=== PATIENT | male | born 1930 | race Caucasian/White ===

== ENCOUNTER 2018-10-03 11:20 | Inpatient (IN) | payer MEDICARE ==
[2018-10-03 11:58] LABS: #Basophils 0.1 thou/uL (0.0-0.2); #Eosinphils 0.2 thou/uL (0.0-0.7); #Lymphocytes 3.3 thou/uL (1.20-3.40); #Monocytes 0.8 thou/uL (0.11-0.59); #Neutrophils 9.1 thou/uL (1.40-6.50); %Eosinophils 1.5 % (0.0-10.0); %Lymphocytes 24.1 % (21.0-51.0); %Monocytes 5.8 % (0.0-10.0); %Neutrophils 67.7 % (42.0-75.0); Hemoglobin 13.7 g/dL (14.0-18.0); Mean Corpuscular HGB CONC 33.2 g/dL (32.0-36.0); Mean Corpuscular Volume 93.4 fL (78.0-98.0); Mean Platelet Volume 7.3 fL (7.4-10.4); Platelet Count 193 thou/uL (130-400); Red Blood Cell (RBC) Count 4.42 mill/uL (4.70-6.10); White Blood Cell (WBC) Count 13.5 thou/uL (4.8-10.8)
[2018-10-03 12:04] LABS: Anion Gap 16 mmol/L (10-20); BUN (Urea Nitrogen) 12 mg/dL (8.4-25.7); Calc. Creatinine Clearance 0 mL/min (70-130); Calcium 8.1 mg/dL (7.8-10.44); Carbon Dioxide 17 mmol/L (23-31); Chloride 101 mmol/L (98-107); Estimated GFR-MDRD 61; Glucose 166 mg/dL (83-110); Potassium 4.8 mmol/L (3.5-5.1); Sodium 129 mmol/L (136-145)
[2018-10-03] MEDS ORDERED: Bisacodyl 5 MG TAB PO PRN (15:02)
[2018-10-03] MEDS ORDERED: Norepinephrine 8 MG/0.9% NS 250 ML IVPB PRN (15:02)
[2018-10-03] MEDS ORDERED: Hetastarch 6% 500 ML 500 ML IVPB PRN (15:02)
[2018-10-03] MEDS ORDERED: Acetaminophen 325 MG TAB PO PRN (15:02)
[2018-10-03] MEDS ORDERED: Morphine 4 MG/ML VIAL SLOW IVP PRN (15:02)
[2018-10-03] MEDS ORDERED: Fentanyl 100 MCG/2 ML VIAL SLOW IVP PRN ×2 (15:02)
[2018-10-03] MEDS ORDERED: Promethazine HCl 25 MG/ML VIAL IM PRN (15:02)
[2018-10-03] MEDS ORDERED: Bisacodyl 10 MG SUPP PR PRN (15:02)
[2018-10-03] MEDS ORDERED: HYDROcodone/Acetaminophen 5/325 mg Tablet PO PRN ×2 (15:02)
[2018-10-03] MEDS ORDERED: hydrALAZINE 20 MG/ML VIAL SLOW IVP PRN (15:02)
[2018-10-03] MEDS ORDERED: Nitroglycerin 50 MG/250 ML BOT 250 ML IVPB PRN (15:02)
[2018-10-03] MEDS ORDERED: Mag-Al 1200 mg/1200 mg/30 ML UDCUP PO PRN (15:02)
[2018-10-03] MEDS ORDERED: Propofol 1,000 MG/100 ML VIAL IV ONE (15:03)
[2018-10-03] MEDS: Sodium Chloride 0.9% 1,000 ML IV SCH ×2 (15:15→22:56)
--- NOTE | 2018-10-03 15:23 | RAD ---
PORTABLE CHEST: Date: 10/03/18 PROVIDED CLINICAL HISTORY: Post open heart. FINDINGS: Comparison made with study dated 05/27/05. Cardiac and mediastinal silhouette within normal limits. Enteric catheter is noted, the tip of which projects in the left upper quadrant. Left subclavian central line is noted with tip projecting in the expected location of cavoatrial junction. Endotracheal tube is noted, tip of which projects slightly inferior to the thoracic inlet. No focal consolidation evident. Evaluation for pleural fluid and pne umothorax is limited given the supine nature of the study. IMPRESSION: Lines and tubes as above. POS: [facility]
[2018-10-03 15:29] LABS: #Eosinphils 0.1 thou/uL (0.0-0.7); #Lymphocytes 1.7 thou/uL (1.20-3.40); #Monocytes 0.6 thou/uL (0.11-0.59); #Neutrophils 11.1 thou/uL (1.40-6.50); %Basophils 0.3 % (0.0-1.0); %Eosinophils 0.5 % (0.0-10.0); %Lymphocytes 12.6 % (21.0-51.0); %Monocytes 4.4 % (0.0-10.0); %Neutrophils 82.2 % (42.0-75.0); Hemoglobin 10.3 g/dL (14.0-18.0); Mean Corpuscular HGB CONC 33.4 g/dL (32.0-36.0); Mean Corpuscular Hemoglobin 30.4 pg (27.0-31.0); Mean Corpuscular Volume 90.9 fL (78.0-98.0); Mean Platelet Volume 7.1 fL (7.4-10.4); Platelet Count 146 thou/uL (130-400); RBC Distribution Width 12.8 % (11.5-14.5); Red Blood Cell (RBC) Count 3.38 mill/uL (4.70-6.10); White Blood Cell (WBC) Count 13.5 thou/uL (4.8-10.8)
[2018-10-03] MEDS ORDERED: PHENYLEPHRINE-NS 100 MCG/ML 10 ML SYRINGE ONE (15:30)
[2018-10-03] MEDS ORDERED: Nitroglycerin 50 MG/250 ML BOT ONE (15:30)
[2018-10-03] MEDS ORDERED: Sodium Bicarb 50 MEQ/50 ML VIAL ONE (15:30)
[2018-10-03] MEDS ORDERED: Calcium Chloride 1 GM/10 ML Abboject SYRINGE ONE (15:30)
[2018-10-03] MEDS ORDERED: Heparin 30,000 units/30 ml VIAL ONE (15:30)
[2018-10-03] MEDS ORDERED: Succinylcholine Chloride 20 MG/ML 10 ml SYRINGE FS ONE (15:30)
[2018-10-03] MEDS ORDERED: Protamine Sulfate 250 MG/25 ML VIAL ONE (15:30)
[2018-10-03 15:33] LABS: INR-International Normal Ratio 1.3; PTT 33.9 SEC (22.9-36.1); Prothrombin Time 16.3 SEC (12.0-14.7)
[2018-10-03 15:43] LABS: Anion Gap 18 mmol/L (10-20); BUN (Urea Nitrogen) 12 mg/dL (8.4-25.7); Calc. Creatinine Clearance 0 mL/min (70-130); Calcium 8.4 mg/dL (7.8-10.44); Carbon Dioxide 20 mmol/L (23-31); Chloride 106 mmol/L (98-107); Estimated GFR-MDRD 70; Glucose 183 mg/dL (83-110); Potassium 4.7 mmol/L (3.5-5.1); Sodium 139 mmol/L (136-145)
[2018-10-03] MEDS ORDERED: Fentanyl 250 MCG/5 ML VIAL ONE (16:08)
[2018-10-03] MEDS ORDERED: Insulin Regular 300 UNITS/3 ML VIAL SC PRN (16:10)
[2018-10-03] MEDS ORDERED: Dextrose 50% Abboject 50 ML SYRINGE SLOW IVP PRN (16:10)
[2018-10-03] MEDS ORDERED: Dextrose 5% in Water 1,000 ML IV PRN (16:10)
[2018-10-03] MEDS ORDERED: Phenylephrine HCL 10 MG/ML VIAL ONE (16:13)
[2018-10-03] MEDS ORDERED: Norepinephrine 8 MG/0.9% NS 250 ML ONE (16:13)
[2018-10-03] MEDS ORDERED: Sodium Chloride 0.9% 1,000 ML IV SCH (16:30)
[2018-10-03] MEDS: Famotidine/PF 20 mg/2ml Vial SLOW IVP SCH (20:24)
[2018-10-03] MEDS ORDERED: Morphine 2 MG/ML SYRINGE SLOW IVP PRN (20:37)
[2018-10-03] MEDS ORDERED: DISCONTINUE PREVIOUS NARCOTIC PAIN MEDICATIONS AND BENZODIAZEPINES FS SCH (20:37)
[2018-10-03] MEDS ORDERED: Fentanyl CADD 250 ML IVPB SCH (20:37)
[2018-10-03] MEDS ORDERED: Fentanyl BOLUS 250 ML IVPB PRN (20:37)
[2018-10-03] MEDS ORDERED: Propofol BOLUS 1,000 MG/100 ML VIAL IV PRN (20:37)
--- NOTE | 2018-10-03 20:37 | OP ---
DATE OF PROCEDURE: 10/03/2018 I received a call from the [place] [facility] with an 87-year-old gentleman there with a ruptured abdominal aortic aneurysm. He was sent here via helicopter. He received 2 units of packed red blood cells in flight. On arrival, he was awake and conversant. Manual cuff pressure obtained showed a systolic pressure in the 60s. We isma blood for type and cross and transported him emergently to the operating room for open repair of ruptured infrarenal abdominal aortic aneurysm. Job ID: [id number] [facility]
--- NOTE | 2018-10-03 21:02 | OP ---
DATE OF PROCEDURE: 10/03/2018 PREOPERATIVE DIAGNOSIS: Ruptured abdominal aortic aneurysm. POSTOPERATIVE DIAGNOSIS: Ruptured abdominal aortic aneurysm. PROCEDURES PERFORMED: 1. Left subclavian triple-lumen central line placement. 2. Open repair of abdominal aortic aneurysm that is ruptured with 18 mm Hemashield tube graft. ANESTHESIA: General endotracheal - Mercy Cardenas CRNA ESTIMATED BLOOD LOSS: Approximately 2000 mL. CELL SAVER RETURN: 1160. TOTAL PRODUCTS GIVEN: Five units packed red blood cells, 6 units FFP, 2 units of platelets, and 1 unit of cryo. DESCRIPTION OF PROCEDURE: After the patient was brought emergently to the operating room from the Emergency Department, central line was placed sterilely using modified Seldinger technique. The abdomen was then prepped and draped in usual sterile fashion from nipples to knees. Skin incision was made from xiphoid to pubis. Fascia was incised with electrocautery. The peritoneum was sharply entered and peritoneal incision extended. There was blood staining of the retroperitoneum and some free blood within the abdominal cavity. The duodenum was mobilized off the retroperitoneum. During mobilization, the retroperitoneum began to bleed vigorously. Blunt dissection was used to expose the infrarenal aorta and the aorta was cross-clamped. The remainder of the duodenal exposure was then performed. There was a large retroperitoneal hematoma surrounding the aneurysm. The aneurysm was over 10 cm in diameter. The distal aorta was exposed and clamped. The aneurysm was entered and the aneurysmal incision extended vertically in both cephalad and caudad. There were no bleeding lumbars. 5000 units IV Heparin was administered. The inferior mesenteric artery was occluded. Proximal anastomosis was created between 18 mm Hemashield tube graft and the aorta with running 3-0 Prolene suture. Multiple pledgeted 3-0 prolene sutures were placed for hemostasis. After adequate hemostasis of the proximal anastomosis been obtained, the graft was cut to appropriate length and the distal anastomosis was created with a running 3-0 Prolene suture. The pelvis was reperfused, followed by the legs. 50 mg of protamine was administered. The patient was given multiple units of blood and blood products as above during the procedure. After adequate hemostasis of the anastomosis had been obtained, the aneurysm sac was closed over the repair with running 2-0 Vicryl suture. Cedrick and Surgicel were used around the proximal aorta for hemostasis. After adequate hemostasis had been obtained, the abdomen was copiously irrigated. The aneurysm itself was re- retroperitonealized with running 2-0 Vicryl suture. Bowels were brought back in the anatomic position. The colon was pink. The bowels were covered with the omentum. The fascia was closed with a running looped #1 PDS suture. Wounds were then irrigated and skin closed with clips. The patient was transported to the intensive care unit in critical condition, intubated. Needle, sponge, and instrument counts were all reported as correct. Job ID: [id number] [facility]
[2018-10-03] MEDS: fentaNYL Citrate/PF 2,000 MCG in Sodium Chloride 0.9% 60 ML IV SCH (21:17)
[2018-10-03] MEDS: CEFAZOLIN 2 GM/50 ML BAG IVPB SCH (21:17)
[2018-10-03] MEDS: Propofol 1,000 MG/100 ML VIAL IV PRN (22:55)
--- NOTE | 2018-10-04 02:31 | CON ---
DATE OF CONSULTATION: 10/03/2018 HISTORY OF PRESENT ILLNESS: Mr. Schuster is a gentleman, flown over here from [place] for abdominal aortic aneurysm repair. He is 87 years of age. There was fair amount of blood loss during the procedure. He was transferred to the critical care unit and intubated. Reviewing all records, he has never been in the hospital here. Apparently, he was brought in after an episode of syncope. He was apparently caught by a bystander. PAST MEDICAL HISTORY: Remarkable for hypertension. SOCIAL HISTORY: He is not a daily drinker. Not a drug user. He is not a smoker. ALLERGIES: THERE IS REPORTED CODEINE ALLERGY. REVIEW OF SYSTEMS: Not obtainable as he is intubated. He is examined postoperatively. PHYSICAL EXAMINATION: VITAL SIGNS: Heart rate is in the 90s, respiratory rate is in the high 20s to low 30s. Oximetry is 100%. Blood pressure 149/72. He is afebrile. HEENT: Pupils react. Sclerae, anicteric. NECK: Supple. LUNGS: Clear. HEART: Regular rhythm. S1, S2 normal. ABDOMEN: Bandaged. EXTREMITIES: Warm. DIAGNOSTIC STUDIES: Chest radiographs remarkable for appropriate position of lines and tubes. No infiltrates are seen. IMPRESSION: Status post emergent repair of abdominal aortic aneurysm. His hemoglobin at 08:20 is 10; at 1511, it was 10.3. His renal function postoperatively; his creatinine is 1. Blood gas; 7.3, Co2 of 42, and pO2 of 113. We will be happy to follow with the other physicians caring for him. Critical care time, 30 minutes. Job ID: [id number] [facility]
[2018-10-04 04:52] LABS: Anion Gap 12 mmol/L (10-20); BUN (Urea Nitrogen) 16 mg/dL (8.4-25.7); Calc. Creatinine Clearance 49 mL/min (70-130); Calcium 7.5 mg/dL (7.8-10.44); Carbon Dioxide 22 mmol/L (23-31); Chloride 110 mmol/L (98-107); Estimated GFR-MDRD 56; Glucose 109 mg/dL (83-110); Potassium 3.8 mmol/L (3.5-5.1); Sodium 140 mmol/L (136-145)
[2018-10-04] MEDS: Sodium Chloride 0.9% 1,000 ML IV SCH ×4 (05:21→23:27)
[2018-10-04] MEDS: CEFAZOLIN 2 GM/50 ML BAG IVPB SCH ×2 (06:08→13:53)
[2018-10-04 06:58] LABS: #Lymphocytes 1.6 thou/uL (1.20-3.40); #Monocytes 0.4 thou/uL (0.11-0.59); #Neutrophils 6.6 thou/uL (1.40-6.50); %Basophils 0.1 % (0.0-1.0); %Eosinophils 0.1 % (0.0-10.0); %Lymphocytes 18.3 % (21.0-51.0); %Monocytes 4.5 % (0.0-10.0); %Neutrophils 77.1 % (42.0-75.0); Hemoglobin 7.9 g/dL (14.0-18.0); Mean Corpuscular HGB CONC 34.3 g/dL (32.0-36.0); Mean Corpuscular Hemoglobin 31.5 pg (27.0-31.0); Mean Corpuscular Volume 91.8 fL (78.0-98.0); Mean Platelet Volume 7.5 fL (7.4-10.4); Platelet Count 114 thou/uL (130-400); Platelet Morphology Comment Appears Decreased; RBC Distribution Width 12.9 % (11.5-14.5); White Blood Cell (WBC) Count 8.6 thou/uL (4.8-10.8)
[2018-10-04 07:07] LABS: Actual Bicarbonate (HCO3a) 21.7 mEq/L (22-28); Base Excess (BEa) -2.4 mEq/L (-2.0 to +3.0); CO2 Tension 34.5 mmHg (35.0-45.0); Calcium, Ionized 1.07 mmol/L (1.12-1.30); Carboxyhemoglobin (COHb) 0.7 gm% (0.0-3.0); Hemoglobin (Hb) 9.1 g/dL (14.0-18.0); O2 Tension (PaO2) 99.1 mmHg (> 60.0); Potassium - ABG Lab 3.78 mmol/L (3.70-5.30); pH, Arterial 7.42 (7.35-7.45)
[2018-10-04 07:10] LABS: Puncture Site RRA
[2018-10-04 07:11] LABS: ALV-art Gradient 142.975 (0-20)
[2018-10-04] MEDS: Famotidine/PF 20 mg/2ml Vial SLOW IVP SCH ×2 (08:27→21:03)
--- NOTE | 2018-10-04 09:06 | RAD ---
PORTABLE CHEST: Date: 10/04/18 PROVIDED CLINICAL HISTORY: Post open heart. FINDINGS: Comparison made with study dated 10/03/18. Bibasilar patchy opacities are more conspicuous than on prior and may reflect volume loss or developi ng infiltrate. Lines and tubes appear similar. No evidence for pneumothorax. IMPRESSION: Probable bibasilar subsegmental atelectatic change. Follow-up recommended. POS: [facility]
--- NOTE | 2018-10-04 12:13 | PRG ---
DATE OF SERVICE: 10/04/2018 SUBJECTIVE: Mr. Jersey Schuster is hemodynamically stable overnight. He has received blood this morning. OBJECTIVE: VITAL SIGNS: Temperature is 100.4, heart rate 75, respiratory rate 18, and blood pressure 101/40. LUNGS: Clear. HEART: Regular rhythm. ABDOMEN: Distended. EXTREMITIES: Warm. Intake and output positive 2667. LABORATORY DATA: A pH 7.42, CO2 of 34, pO2 of 99. Sodium 140, potassium 3.8, chloride 110, bicarb 22, BUN 16, creatinine 1.21. White count 8.6, hemoglobin 7.9, and platelets 114,000. IMPRESSION: 1. Status post emergent repair of an abdominal aortic aneurysm that was leaking and bleeding into his retroperitoneum. 2. Blood loss anemia. 3. Advanced age. 4. Probable some mild degree of chronic kidney disease given his advanced age and vascular disease. Reviewed today's chest radiograph. He has mild pulmonary edema. We will not diurese him at this point. PLAN: We will continue with supportive care. We will get an echocardiogram to quantitate left ventricular function while he is here, although, this will change our management at this point in time. This can certainly be done tomorrow. He does not have any family. He has 2 very close friends, who are at the bedside and I have updated them. Apparently, he has not had contact with any of his family in many years. Critical care time 30 minutes. Job ID: [id number]
[2018-10-04] MEDS: Acetaminophen 650 MG/20.3 ML UDCUP PO PRN (16:46)
[2018-10-04] MEDS: Propofol 1,000 MG/100 ML VIAL IV PRN (18:46)
[2018-10-05 04:34] LABS: #Basophils 0.1 thou/uL (0.0-0.2); #Eosinphils 0.1 thou/uL (0.0-0.7); #Lymphocytes 1.9 thou/uL (1.20-3.40); #Monocytes 0.6 thou/uL (0.11-0.59); #Neutrophils 11.2 thou/uL (1.40-6.50); %Basophils 0.5 % (0.0-1.0); %Eosinophils 0.6 % (0.0-10.0); %Lymphocytes 13.6 % (21.0-51.0); %Monocytes 4.6 % (0.0-10.0); %Neutrophils 80.6 % (42.0-75.0); Hemoglobin 10.3 g/dL (14.0-18.0); Mean Corpuscular HGB CONC 33.2 g/dL (32.0-36.0); Mean Corpuscular Hemoglobin 29.9 pg (27.0-31.0); Mean Corpuscular Volume 90.2 fL (78.0-98.0); Mean Platelet Volume 8.1 fL (7.4-10.4); Platelet Count 104 thou/uL (130-400); RBC Distribution Width 14.6 % (11.5-14.5); Red Blood Cell (RBC) Count 3.45 mill/uL (4.70-6.10); White Blood Cell (WBC) Count 13.8 thou/uL (4.8-10.8)
[2018-10-05 04:43] LABS: Anion Gap 13 mmol/L (10-20); BUN (Urea Nitrogen) 20 mg/dL (8.4-25.7); Calc. Creatinine Clearance 58 mL/min (70-130); Calcium 7.8 mg/dL (7.8-10.44); Carbon Dioxide 21 mmol/L (23-31); Chloride 110 mmol/L (98-107); Estimated GFR-MDRD 68; Glucose 104 mg/dL (83-110); Potassium 3.6 mmol/L (3.5-5.1); Sodium 140 mmol/L (136-145)
[2018-10-05 06:26] LABS: Actual Bicarbonate (HCO3a) 22.8 mEq/L (22-28); Base Excess (BEa) -1.5 mEq/L (-2.0 to +3.0); CO2 Tension 36.5 mmHg (35.0-45.0); Hemoglobin (Hb) 10.4 g/dL (14.0-18.0); O2 Tension (PaO2) 64.2 mmHg (> 60.0); Potassium - ABG Lab 3.53 mmol/L (3.70-5.30); pH, Arterial 7.41 (7.35-7.45)
[2018-10-05 06:28] LABS: ALV-art Gradient 175.375 (0-20); Puncture Site RRA
[2018-10-05] MEDS ORDERED: Potassium Chloride 20 MEQ in Sodium Chloride 0.9% 250 ML 250 ML IVPB SCH (07:30)
[2018-10-05] MEDS ORDERED: Furosemide 40 MG/4 ML VIAL SLOW IVP SCH (07:30)
--- NOTE | 2018-10-05 08:31 | RAD ---
CHEST ONE VIEW: Comparison: 10-04-18 History: Status post open heart surgery. FINDINGS: Redemonstration of the left sided central venous catheter, endotracheal tube, and nasogastric tube. T here is atherosclerosis of the aorta. Heart is enlarged. There are bibasilar pleural effusions with i ncreasing opacification due to atelectasis, pneumonia, or aspiration. There is no pneumothorax. IMPRESSION: 1. Findings compatible with recent open heart surgery. 2. Increased opacities in the lung bases as described above. POS: [facility]
[2018-10-05] MEDS: Sodium Chloride 0.9% 1,000 ML IV SCH ×2 (09:01→20:35)
[2018-10-05] MEDS: Famotidine/PF 20 mg/2ml Vial SLOW IVP SCH ×2 (09:02→20:33)
[2018-10-05] MEDS: Propofol 1,000 MG/100 ML VIAL IV PRN ×2 (13:16→22:46)
--- NOTE | 2018-10-05 14:29 | PRG ---
DATE OF SERVICE: 10/05/2018 SUBJECTIVE: Mr. Schuster will communicate if a loud voice is used. He is hard of hearing. He nods that he is comfortable. OBJECTIVE: VITAL SIGNS: Heart rate 85, blood pressure 104/46, respiratory rate is 20. LUNGS: Remarkable for crackles at his lung bases. HEART: Regular rhythm. ABDOMEN: Soft and slightly tender as expected. EXTREMITIES: Warm and without edema. LABORATORY DATA: White count is 13.8, hemoglobin 10.3, platelets 104,000. Electrolytes are unremarkable; pH 7.41, pCO2 of 36, PO2 64. Chest radiograph shows increasing pulmonary edema. Lasix was started today. Echocardiogram has been done. IMPRESSION: Volume overload with pulmonary edema after emergent repair of a rupturing abdominal aortic aneurysm. I would not recommend weaning and extubation given his advanced age and [id number] pulmonary edema. Hopefully, with 24 hours of diuresis we will see significant improvement and we can wean and extubate him tomorrow. Critical care time 30 minutes. Job ID: [id number]
[2018-10-06 05:42] LABS: #Eosinphils 0.1 thou/uL (0.0-0.7); #Lymphocytes 1.2 thou/uL (1.20-3.40); #Monocytes 0.6 thou/uL (0.11-0.59); #Neutrophils 8.8 thou/uL (1.40-6.50); %Basophils 0.4 % (0.0-1.0); %Eosinophils 1.3 % (0.0-10.0); %Lymphocytes 10.8 % (21.0-51.0); %Monocytes 5.3 % (0.0-10.0); %Neutrophils 82.2 % (42.0-75.0); Hemoglobin 9.7 g/dL (14.0-18.0); Mean Corpuscular HGB CONC 33.5 g/dL (32.0-36.0); Mean Corpuscular Hemoglobin 30.4 pg (27.0-31.0); Mean Corpuscular Volume 90.8 fL (78.0-98.0); Mean Platelet Volume 7.9 fL (7.4-10.4); Platelet Count 104 thou/uL (130-400); RBC Distribution Width 14.2 % (11.5-14.5); Red Blood Cell (RBC) Count 3.17 mill/uL (4.70-6.10); White Blood Cell (WBC) Count 10.7 thou/uL (4.8-10.8)
[2018-10-06 05:47] LABS: Anion Gap 9 mmol/L (10-20); BUN (Urea Nitrogen) 22 mg/dL (8.4-25.7); Calc. Creatinine Clearance 71 mL/min (70-130); Calcium 7.9 mg/dL (7.8-10.44); Carbon Dioxide 23 mmol/L (23-31); Chloride 111 mmol/L (98-107); Estimated GFR-MDRD 80; Glucose 125 mg/dL (83-110); Potassium 3.6 mmol/L (3.5-5.1); Sodium 139 mmol/L (136-145)
[2018-10-06] MEDS ORDERED: Potassium Chloride 40 MEQ in Premix Bag 1 BAG IVPB SCH (06:45)
[2018-10-06 07:30] LABS: Actual Bicarbonate (HCO3a) 20.4 mEq/L (22-28); Base Excess (BEa) -3.1 mEq/L (-2.0 to +3.0); CO2 Tension 31.5 mmHg (35.0-45.0); Calcium, Ionized 1.13 mmol/L (1.12-1.30); Carboxyhemoglobin (COHb) 1.3 gm% (0.0-3.0); pH, Arterial 7.43 (7.35-7.45)
[2018-10-06 07:32] LABS: O2 Tension (PaO2) 54.2 mmHg (> 60.0)
[2018-10-06 07:33] LABS: ALV-art Gradient 191.625 (0-20); Puncture Site RRA
--- NOTE | 2018-10-06 08:08 | RAD ---
AP CHEST: History: Status post open heart surgery. Date: 10-06-18 Comparison: 10-05-18 FINDINGS: AP chest demonstrates a nasogastric and endotracheal tube to be in place. A left subclavian central l ine is seen. Small bilateral pleural effusions seen. Pulmonary vascular congestion is seen. IMPRESSION: 1. Bilateral pleural effusions. 2. Areas of airspace opacities in both lung bases compatible with atelectasis or pneumonia. POS: [facility]
[2018-10-06] MEDS: Propofol 1,000 MG/100 ML VIAL IV PRN ×2 (08:35→19:10)
[2018-10-06] MEDS: Famotidine/PF 20 mg/2ml Vial SLOW IVP SCH ×2 (08:48→20:13)
[2018-10-06] MEDS: Furosemide 40 MG/4 ML VIAL SLOW IVP SCH (16:23)
[2018-10-06] MEDS: Sodium Chloride 0.9% 1,000 ML IV SCH (16:23)
[2018-10-06] MEDS: Lorazepam 2 MG/ML VIAL SLOW IVP PRN (21:48)
[2018-10-06] MEDS: fentaNYL Citrate/PF 2,000 MCG in Sodium Chloride 0.9% 60 ML IV SCH (23:14)
[2018-10-07] MEDS: Lorazepam 2 MG/ML VIAL SLOW IVP PRN (02:19)
[2018-10-07] MEDS: Propofol 1,000 MG/100 ML VIAL IV PRN (02:21)
[2018-10-07 02:43] LABS: Base Excess (BEa) 0.2 mEq/L (-2.0 to +3.0); CO2 Tension 35.8 mmHg (35.0-45.0); Calcium, Ionized 1.09 mmol/L (1.12-1.30); Carboxyhemoglobin (COHb) 0.9 gm% (0.0-3.0); Hemoglobin (Hb) 10.7 g/dL (14.0-18.0); Potassium - ABG Lab 3.74 mmol/L (3.70-5.30); pH, Arterial 7.45 (7.35-7.45)
[2018-10-07 02:47] LABS: O2 Tension (PaO2) 58.8 mmHg (> 60.0); Puncture Site RRA
[2018-10-07] MEDS: Furosemide 40 MG/4 ML VIAL SLOW IVP SCH (03:19)
[2018-10-07 05:53] LABS: #Eosinphils 0.2 thou/uL (0.0-0.7); #Lymphocytes 0.8 thou/uL (1.20-3.40); #Monocytes 0.3 thou/uL (0.11-0.59); #Neutrophils 7.2 thou/uL (1.40-6.50); %Basophils 0.1 % (0.0-1.0); %Eosinophils 1.8 % (0.0-10.0); %Lymphocytes 9.8 % (21.0-51.0); %Monocytes 3.1 % (0.0-10.0); %Neutrophils 85.2 % (42.0-75.0); Hemoglobin 10.1 g/dL (14.0-18.0); Mean Corpuscular HGB CONC 33.3 g/dL (32.0-36.0); Mean Corpuscular Hemoglobin 30.5 pg (27.0-31.0); Mean Corpuscular Volume 91.6 fL (78.0-98.0); Mean Platelet Volume 7.9 fL (7.4-10.4); Platelet Count 119 thou/uL (130-400); RBC Distribution Width 14.3 % (11.5-14.5); Red Blood Cell (RBC) Count 3.31 mill/uL (4.70-6.10); White Blood Cell (WBC) Count 8.4 thou/uL (4.8-10.8)
[2018-10-07 06:02] LABS: Anion Gap 11 mmol/L (10-20); BUN (Urea Nitrogen) 26 mg/dL (8.4-25.7); Calc. Creatinine Clearance 58 mL/min (70-130); Calcium 7.5 mg/dL (7.8-10.44); Carbon Dioxide 22 mmol/L (23-31); Chloride 109 mmol/L (98-107); Estimated GFR-MDRD 64; Glucose 95 mg/dL (83-110); Potassium 3.6 mmol/L (3.5-5.1); Sodium 138 mmol/L (136-145)
[2018-10-07 06:47] LABS: Actual Bicarbonate (HCO3a) 23.7 mEq/L (22-28); Base Excess (BEa) -0.1 mEq/L (-2.0 to +3.0); CO2 Tension 35.4 mmHg (35.0-45.0); Calcium, Ionized 1.11 mmol/L (1.12-1.30); Carboxyhemoglobin (COHb) 0.8 gm% (0.0-3.0); Hemoglobin (Hb) 11.6 g/dL (14.0-18.0); O2 Tension (PaO2) 74.4 mmHg (> 60.0); Potassium - ABG Lab 3.62 mmol/L (3.70-5.30); pH, Arterial 7.44 (7.35-7.45)
[2018-10-07 06:49] LABS: Puncture Site LB
--- NOTE | 2018-10-07 07:47 | PRG ---
DATE OF SERVICE: 10/06/2018 SUBJECTIVE: Jersey Schuster awakens. He moves all his extremities. He is in no distress. Intake and output coming in today was positive 196 inspite of Lasix yesterday. He had 2351 in. OBJECTIVE: VITAL SIGNS: Blood pressure 114/65, heart rate 79, respiratory rate 29, and blood pressure is 117/52. LUNGS: Remarkable for coarse equal breath sounds. HEART: Regular rhythm. S1 and S2 are normal. ABDOMEN: Soft. EXTREMITIES: Without edema or asymmetry. LABORATORY DATA: White count 10.7, hemoglobin 9.7, platelets 104,000. Sodium 139, potassium 3.6, chloride 111, bicarb 23, BUN 22, creatinine 0.89. A pH 7.43, CO2 of 31, and pO2 of 54. Chest radiograph today still shows pulmonary edema. IMPRESSION: Volume overload after volume resuscitation for a bleeding aortic aneurysm, now repaired. PLAN: Continue diuresis. Minimize fluids. Intake and output so far today looks like we may be making a little headway. We will continue to follow along with physicians. I have turned his ventilator down to minimum of support. He has a good night and we will consider weaning and extubation tomorrow. Critical care time 30 minutes. Job ID: [id number]
--- NOTE | 2018-10-07 08:48 | RAD ---
AP CHEST: History: Hypoxemia. Date: 10-07-18 Comparison: 10-06-18 FINDINGS: AP chest demonstrates nasogastric and endotracheal tubes to be in good position. A left subclavian ce ntral line is seen. Bilateral pleural effusions seen. Pulmonary vascular congestion is seen. Airspace opacity seen in both lung bases. IMPRESSION: Stable AP view of the chest with no significant interval changes seen. POS: [facility]
[2018-10-07 09:19] LABS: Actual Bicarbonate (HCO3a) 22.2 mEq/L (22-28); Analyzer IN Cardio OR; Base Excess (BEa) -6.4 mEq/L (-2.0 to +3.0); Calcium, Ionized 1.01 mmol/L (1.12-1.30); Hemoglobin (Hb) 10.1 g/dL (14.0-18.0); O2 Tension (PaO2) 81.9 mmHg (> 60.0); Potassium - ABG Lab 3.93 mmol/L (3.70-5.30)
[2018-10-07 09:19] LABS: Actual Bicarbonate (HCO3a) 21.7 mEq/L (22-28); Analyzer IN Cardio OR; Base Excess (BEa) -6.3 mEq/L (-2.0 to +3.0); CO2 Tension 54.9 mmHg (35.0-45.0); Calcium, Ionized 0.86 mmol/L (1.12-1.30); Carboxyhemoglobin (COHb) 0.2 gm% (0.0-3.0); Hemoglobin (Hb) 11.3 g/dL (14.0-18.0); O2 Tension (PaO2) 71.2 mmHg (> 60.0); Potassium - ABG Lab 4.77 mmol/L (3.70-5.30)
[2018-10-07 09:36] LABS: CO2 Tension 60.9 mmHg (35.0-45.0); Puncture Site ALINE; pH, Arterial 7.18 (7.35-7.45)
[2018-10-07 09:37] LABS: Puncture Site ALINE; pH, Arterial 7.22 (7.35-7.45)
[2018-10-07] MEDS: Famotidine/PF 20 mg/2ml Vial SLOW IVP SCH ×2 (09:44→20:46)
[2018-10-07] MEDS ORDERED: Furosemide 40 MG/4 ML VIAL SLOW IVP SCH (10:00)
[2018-10-07] MEDS: Sodium Chloride 0.9% 1,000 ML IV SCH (10:01)
[2018-10-07] MEDS ORDERED: Albumin 25% 25 GM/100 ML BOT IVPB SCH (14:00)
--- NOTE | 2018-10-07 14:26 | PRG ---
DATE OF SERVICE: 10/07/2018 SUBJECTIVE: Mr. Schuster became tachypneic last night. Apparently, he was fairly deeply sedated. Tidal volumes dropped. Respiratory rate increased. This improved with increased mechanical ventilatory support. Blood pressure has been in the 80s to 90s. We have added salt-poor albumin to see if this helps mobilize microvascular volume. OBJECTIVE: VITAL SIGNS: Heart rates in the 80s, respiratory rates in the teens. LUNGS: Remarkable for mild rhonchi bilaterally. HEART: Regular rate and rhythm. S1 and S2 are normal. There is grade 2/6 systolic murmur. ABDOMEN: Soft. EXTREMITIES: Warm without edema. LABORATORY DATA: PH 7.44, CO2 of 35, pO2 of 74. White count 8.4, hemoglobin 10.1, platelets 119,000. Sodium 138, potassium 3.6, chloride 109, bicarb 22, BUN 26, creatinine 1.08. IMPRESSION: 1. Respiratory failure after an emergent abdominal aortic aneurysm repair. 2. Pulmonary edema. Surprisingly his left ventricular ejection fraction is normal. We will continue with attempts of diuresing him and perhaps decreased ventilatory support tomorrow. He actually tolerates being lightly sedated quite well, not combative with mechanical ventilation. We need to try to minimize sedation. Critical care time 30 minutes. Job ID: [id number]
[2018-10-07] MEDS: Furosemide 100 MG/10 ML VIAL SLOW IVP SCH (14:45)
[2018-10-07] MEDS ORDERED: Potassium Chloride 40 MEQ in Premix Bag 1 BAG IVPB SCH (17:15)
[2018-10-07] MEDS: Acetaminophen 650 MG/20.3 ML UDCUP PO PRN (20:46)
[2018-10-08 05:31] LABS: #Eosinphils 0.3 thou/uL (0.0-0.7); #Lymphocytes 1.1 thou/uL (1.20-3.40); #Monocytes 0.5 thou/uL (0.11-0.59); #Neutrophils 8.4 thou/uL (1.40-6.50); %Eosinophils 2.5 % (0.0-10.0); %Monocytes 4.9 % (0.0-10.0); %Neutrophils 81.5 % (42.0-75.0); Hemoglobin 9.9 g/dL (14.0-18.0); Mean Corpuscular HGB CONC 33.2 g/dL (32.0-36.0); Mean Corpuscular Hemoglobin 30.7 pg (27.0-31.0); Mean Corpuscular Volume 92.5 fL (78.0-98.0); Mean Platelet Volume 8.1 fL (7.4-10.4); Platelet Count 119 thou/uL (130-400); RBC Distribution Width 14.2 % (11.5-14.5); Red Blood Cell (RBC) Count 3.21 mill/uL (4.70-6.10); White Blood Cell (WBC) Count 10.3 thou/uL (4.8-10.8)
[2018-10-08 06:06] LABS: Anion Gap 13 mmol/L (10-20); BUN (Urea Nitrogen) 37 mg/dL (8.4-25.7); Calc. Creatinine Clearance 48 mL/min (70-130); Calcium 7.8 mg/dL (7.8-10.44); Carbon Dioxide 23 mmol/L (23-31); Chloride 107 mmol/L (98-107); Estimated GFR-MDRD 52; Glucose 147 mg/dL (83-110); Potassium 3.5 mmol/L (3.5-5.1); Sodium 139 mmol/L (136-145)
[2018-10-08] MEDS: Potassium Chloride 20 MEQ/100 ML PREMIX BAG IVPB PRN (06:14)
[2018-10-08] MEDS: Sodium Chloride 0.9% 1,000 ML IV SCH (06:21)
[2018-10-08] MEDS: Furosemide 100 MG/10 ML VIAL SLOW IVP SCH (07:13)
--- NOTE | 2018-10-08 08:15 | RAD ---
AP VIEW CHEST: Date: 10/08/18 HISTORY: Fluid overload. FINDINGS: Comparison made to previous exam from 10/07/18. AP view of chest demonstrates nasogastric and endotracheal tubes to be in place. EKG leads seen over the chest. Diffuse interstitial markings throughout the lungs compatible with interstitial fibrotic c hanges, more pronounced in the lung bases. Small bilateral pleural effusions seen. IMPRESSION: 1. Nasogastric and endotracheal tubes in place. 2. Small bilateral pleural effusions and areas of interstitial markings in the lung bases seen. No s ignificant interval change is noted. The volume of the pleural effusions have slightly decreased sinc e the previous day's exam. POS: [facility]
[2018-10-08] MEDS: Famotidine/PF 20 mg/2ml Vial SLOW IVP SCH (08:47)
[2018-10-08] MEDS: Ondansetron PF 4 MG/2 ML Vial IVP PRN (12:52)
[2018-10-08] MEDS ORDERED: PROPOFOL 0 ML ONE (13:29)
[2018-10-08] MEDS ORDERED: Midazolam HCl 2 mg/2 ml Vial ONE (13:29)
[2018-10-08 14:37] LABS: Actual Bicarbonate (HCO3a) 23.2 mEq/L (22-28); Base Excess (BEa) 0.4 mEq/L (-2.0 to +3.0); CO2 Tension 31.6 mmHg (35.0-45.0); Calcium, Ionized 1.14 mmol/L (1.12-1.30); Carboxyhemoglobin (COHb) 0.6 gm% (0.0-3.0); Hemoglobin (Hb) 11.3 g/dL (14.0-18.0); O2 Tension (PaO2) 65.9 mmHg (> 60.0); Potassium - ABG Lab 3.77 mmol/L (3.70-5.30); pH, Arterial 7.48 (7.35-7.45)
[2018-10-08 14:38] LABS: Puncture Site RR
[2018-10-08] MEDS ORDERED: Acetaminophen 1,000 MG in Premix Bag 1 BAG IVPB PRN (15:36)
[2018-10-08] MEDS ORDERED: Sodium Chloride 0.9% 1,000 ML IV SCH (15:45)
[2018-10-08] MEDS: Piperacillin/Tazobactam 3.375 GM in Sodium Chloride 0.9% 100 ML IVPB SCH ×2 (16:57→22:54)
--- NOTE | 2018-10-08 20:00 | PRG ---
DATE OF SERVICE: 10/08/2018 SUBJECTIVE: Jersey Michaud was switched to pressure support ventilation this morning with a positive leak test.. I felt he met criteria for weaning and extubation. He passed a leak test. His NG tube had been placed to suction as he had huge residual this morning. When he was extubated, he vomited and aspirated a little bit of his vomit. He became rhonchorous after that. I was anticipating re- intubating him, but we gave him a nebulized treatment, watched him for a while and he calmed down. OBJECTIVE: VITAL SIGNS: This afternoon; blood pressure 105/68, heart rate is 91, respiratory rate is 26, oximetry is 100% on face mask. LUNGS: Clear considerably since he is extubated. HEART: Regular rhythm. ABDOMEN: Soft, slightly distended. EXTREMITIES: Without significant edema. LABORATORY DATA: White count 10.3, hemoglobin 9.9, and platelets 119. Sodium 139, potassium 3.5, chloride 107, bicarb 23, BUN 37, and creatinine 1.29. A pH 7.48, pCO2 of 31, pO2 of 65. IMAGING STUDIES: His chest x-ray showed increased interstitial markings, but I believe in contrast to the radiologist this was slightly improved compared to yesterday's film. He has a negative fluid balance with -717 mL this morning. His Lasix was discontinued as his BUN and creatinine are starting to rise. IMPRESSION: 1. Status post emergent abdominal aortic aneurysm repair. 2. Status post aspiration, that improved quickly. He will not hopefully need intubation or bronchoscopy. 3. Advanced age. It is unclear what his functional status was prior to this illness. 4. Mild pulmonary edema versus interstitial scarring. We do not have a lot of x-rays for comparison. PLAN: We will continue to follow with the other physicians. We will place him on BiPAP tonight for some muscle rest, but hopefully we can discontinue BiPAP if he is doing well tomorrow. Will start on antibiotics since he is still intermittently febrile Critical care time 30 minutes. Job ID: [id number] [facility]
[2018-10-09 04:07] LABS: #Eosinphils 0.2 thou/uL (0.0-0.7); #Lymphocytes 0.7 thou/uL (1.20-3.40); #Monocytes 0.6 thou/uL (0.11-0.59); %Basophils 0.3 % (0.0-1.0); %Eosinophils 1.7 % (0.0-10.0); %Lymphocytes 5.7 % (21.0-51.0); %Monocytes 5.3 % (0.0-10.0); %Neutrophils 86.9 % (42.0-75.0); Hemoglobin 10.1 g/dL (14.0-18.0); Mean Corpuscular HGB CONC 33.2 g/dL (32.0-36.0); Mean Corpuscular Hemoglobin 30.8 pg (27.0-31.0); Mean Platelet Volume 8.1 fL (7.4-10.4); Platelet Count 126 thou/uL (130-400); RBC Distribution Width 14.1 % (11.5-14.5); Red Blood Cell (RBC) Count 3.28 mill/uL (4.70-6.10); White Blood Cell (WBC) Count 11.5 thou/uL (4.8-10.8)
[2018-10-09 04:33] LABS: Anion Gap 14 mmol/L (10-20); BUN (Urea Nitrogen) 41 mg/dL (8.4-25.7); Calc. Creatinine Clearance 56 mL/min (70-130); Calcium 8.2 mg/dL (7.8-10.44); Carbon Dioxide 24 mmol/L (23-31); Chloride 108 mmol/L (98-107); Estimated GFR-MDRD 64; Glucose 111 mg/dL (83-110); Potassium 3.6 mmol/L (3.5-5.1); Sodium 142 mmol/L (136-145)
[2018-10-09] MEDS: Piperacillin/Tazobactam 3.375 GM in Sodium Chloride 0.9% 100 ML IVPB SCH ×4 (04:41→23:32)
[2018-10-09] MEDS: Potassium Chloride 20 MEQ/100 ML PREMIX BAG IVPB PRN (06:48)
[2018-10-09] MEDS: Famotidine/PF 20 mg/2ml Vial SLOW IVP SCH (08:59)
--- NOTE | 2018-10-09 11:26 | PRG ---
DATE OF SERVICE: 10/09/2018 SUBJECTIVE: Jersey Schuster is very weak. He is in no distress. He has not had anymore respiratory issues since he was extubated yesterday. OBJECTIVE: VITAL SIGNS: Blood pressure 120/65, heart rate 94, respiratory rate 21, oximetry is 100%. Intake and outputs -331 mL. LUNGS: Clear. The rhonchi from yesterday have resolved. HEART: Regular rhythm. ABDOMEN: Soft, nontender. EXTREMITIES: Warm. LABORATORY DATA: White count 11.5, hemoglobin 10.1, and platelets 126,000. Sodium 142, potassium 3.6, chloride 108, bicarb 24, BUN 41, and creatinine 1.09. IMPRESSION: 1. Status post emergent repair of abdominal aortic aneurysm. 2. Postop pulmonary edema with a normal ejection fraction. 3. Status post extubation yesterday with a large volume of vomit after extubation, some of which he aspirated. He was almost reintubated, but gradually had resolution of his symptoms. 4. Critical illness weakness combined with advanced age weakness. 5. Renal insufficiency that is related to diuresis postoperatively. His creatinine has gone from 1.29 yesterday to 1.09 today. 6. No available family. He has two close friends over in [facility]. He is apparently estranged from his children. PLAN: We will continue with supportive care. He will need to be placed in a swing bed once he is transferred out of the Critical Care Unit. He is probably stable for transfer out of critical care, although, he will need to be in an area, where he has constant attention. He probably needs to have a slow advancing of his diet starting with liquids given that he has an ileus. He also needs physical therapy to start working with him. Job ID: [id number]
[2018-10-10 03:51] LABS: #Eosinphils 0.1 thou/uL (0.0-0.7); #Lymphocytes 0.6 thou/uL (1.20-3.40); #Monocytes 0.6 thou/uL (0.11-0.59); #Neutrophils 8.1 thou/uL (1.40-6.50); %Basophils 0.3 % (0.0-1.0); %Eosinophils 1.1 % (0.0-10.0); %Lymphocytes 6.3 % (21.0-51.0); %Monocytes 6.3 % (0.0-10.0); %Neutrophils 85.9 % (42.0-75.0); Hemoglobin 9.4 g/dL (14.0-18.0); Mean Corpuscular HGB CONC 32.6 g/dL (32.0-36.0); Mean Corpuscular Hemoglobin 30.4 pg (27.0-31.0); Mean Corpuscular Volume 93.5 fL (78.0-98.0); Mean Platelet Volume 8.4 fL (7.4-10.4); Platelet Count 164 thou/uL (130-400); RBC Distribution Width 14.2 % (11.5-14.5); Red Blood Cell (RBC) Count 3.09 mill/uL (4.70-6.10); White Blood Cell (WBC) Count 9.4 thou/uL (4.8-10.8)
[2018-10-10 04:11] LABS: Anion Gap 11 mmol/L (10-20); BUN (Urea Nitrogen) 44 mg/dL (8.4-25.7); Calc. Creatinine Clearance 55 mL/min (70-130); Calcium 8.1 mg/dL (7.8-10.44); Carbon Dioxide 25 mmol/L (23-31); Chloride 113 mmol/L (98-107); Estimated GFR-MDRD 64; Glucose 119 mg/dL (83-110); Potassium 3.4 mmol/L (3.5-5.1); Sodium 146 mmol/L (136-145)
[2018-10-10] MEDS: Piperacillin/Tazobactam 3.375 GM in Sodium Chloride 0.9% 100 ML IVPB SCH ×4 (04:24→23:11)
[2018-10-10] MEDS: Potassium Chloride 20 MEQ/100 ML PREMIX BAG IVPB PRN (05:07)
--- NOTE | 2018-10-10 08:08 | PRG ---
DATE OF SERVICE: 10/10/2018 SUBJECTIVE: The patient is pleasant, albeit confused. There have been no acute events overnight. OBJECTIVE: VITAL SIGNS: His temperature is 98.6, pulse is 83, blood pressure 108/51, O2 sat generally in the 90s on nasal cannula. Intake for 24 hours 806, output 815. HEENT: Unremarkable. NECK: No JVD. LUNGS: Fairly clear. CARDIAC: S1, S2. Regular. ABDOMEN: Midline surgical wound appears to be healing well. EXTREMITIES: No edema. LABORATORY DATA: White count 9.4, hematocrit 28.9, and platelet count 164. Sodium 146, potassium 3.4, chloride 113, CO2 of 25, BUN 44, creatinine 1.0, glucose 119. ASSESSMENT: 1. Postoperative from an abdominal aortic aneurysm. 2. Aspiration after being extubated. 3. Encephalopathy. 4. Hypokalemia. 5. Renal insufficiency. PLAN: He seems to be doing fairly well aside from the encephalopathy. From Pulmonary standpoint, he is probably ready for transfer to the floor, but he will need a sitter. He is starting to develop a free water deficit. Therefore, I would recommend starting D5W at a slow rate until his nutritional status is better. Continue the Zosyn. Replace potassium. Job ID: [id number]
[2018-10-10] MEDS: Dextrose 5% in Water 1,000 ML IV SCH ×3 (09:13→23:13)
[2018-10-10] MEDS: Famotidine/PF 20 mg/2ml Vial SLOW IVP SCH (09:17)
[2018-10-10] MEDS: Ondansetron PF 4 MG/2 ML Vial IVP PRN (12:11)
[2018-10-11 04:43] LABS: #Eosinphils 0.2 thou/uL (0.0-0.7); #Lymphocytes 0.8 thou/uL (1.20-3.40); #Monocytes 0.6 thou/uL (0.11-0.59); #Neutrophils 10.8 thou/uL (1.40-6.50); %Basophils 0.2 % (0.0-1.0); %Lymphocytes 6.1 % (21.0-51.0); %Neutrophils 86.7 % (42.0-75.0); Hemoglobin 10.2 g/dL (14.0-18.0); Mean Corpuscular HGB CONC 32.5 g/dL (32.0-36.0); Mean Corpuscular Hemoglobin 30.6 pg (27.0-31.0); Mean Corpuscular Volume 94.2 fL (78.0-98.0); Mean Platelet Volume 8.2 fL (7.4-10.4); Platelet Count 186 thou/uL (130-400); RBC Distribution Width 14.4 % (11.5-14.5); Red Blood Cell (RBC) Count 3.32 mill/uL (4.70-6.10); White Blood Cell (WBC) Count 12.5 thou/uL (4.8-10.8)
[2018-10-11] MEDS: Piperacillin/Tazobactam 3.375 GM in Sodium Chloride 0.9% 100 ML IVPB SCH ×4 (04:55→23:42)
[2018-10-11 05:08] LABS: Anion Gap 9 mmol/L (10-20); BUN (Urea Nitrogen) 42 mg/dL (8.4-25.7); Calc. Creatinine Clearance 58 mL/min (70-130); Carbon Dioxide 27 mmol/L (23-31); Chloride 114 mmol/L (98-107); Estimated GFR-MDRD 71; Glucose 136 mg/dL (83-110); Potassium 3.2 mmol/L (3.5-5.1); Sodium 147 mmol/L (136-145)
[2018-10-11] MEDS: Potassium Chloride 20 MEQ/100 ML PREMIX BAG IVPB PRN (05:16)
[2018-10-11] MEDS: Ondansetron PF 4 MG/2 ML Vial IVP PRN (05:33)
[2018-10-11] MEDS ORDERED: Potassium Chloride 20 MEQ TAB PO SCH (08:00)
--- NOTE | 2018-10-11 08:33 | PRG ---
DATE OF SERVICE: 10/11/2018 SUBJECTIVE: Mr. Schuster remains confused, but pleasant. OBJECTIVE: VITAL SIGNS: On exam, temperature 97.8, pulse 85, blood pressure 126/68, O2 saturation 98%. Intake for the last 24 hours 2328, output 1041. HEENT: Unremarkable. NECK: Without adenopathy, JVD, or bruits. LUNGS: Clear anteriorly. CARDIAC: S1, S2. Regular. ABDOMEN: Soft. EXTREMITIES: No edema. LABORATORY DATA: Sodium 147, potassium 3.2, chloride 114, CO2 of 27, BUN 42, creatinine 0.9, glucose 136. White blood cell count 12.5, hematocrit 31.3, and platelet count 186. ASSESSMENT: 1. Postop from abdominal aortic aneurysm surgery. 2. Aspiration pneumonitis. 3. Encephalopathy. 4. Hypokalemia. 5. Free water deficit/hyponatremia. PLAN: 1. Needs more free water. 2. Melatonin at night to see if we can get him sleeping again to hopefully improve his encephalopathy. 3. Replace potassium. 4. Continue Zosyn. 5. He may actually do better on the floor if transfer is okay by this cardiovascular surgery team. Job ID: [id number]
[2018-10-11] MEDS: Dextrose 5% in Water 1,000 ML IV SCH ×2 (09:32→17:48)
[2018-10-11] MEDS: Famotidine/PF 20 mg/2ml Vial SLOW IVP SCH (10:19)
[2018-10-11] MEDS ORDERED: Potassium Chloride 20 MEQ/100 ML PREMIX BAG IVPB PRN (10:21)
[2018-10-11] MEDS ORDERED: Metoprolol Tartrate 25 MG TAB PO SCH (10:30)
[2018-10-11] MEDS ORDERED: Potassium Chloride 40 MEQ in Premix Bag 1 BAG IVPB SCH (10:30)
[2018-10-11] MEDS: Potassium Chloride 40 MEQ in Premix Bag 1 BAG IVPB SCH ×2 (11:39→11:58)
[2018-10-11] MEDS: Metoprolol Tartrate 25 MG TAB PO SCH ×2 (11:39→21:15)
[2018-10-11] MEDS ORDERED: Ziprasidone 20 MG VIAL IM SCH (20:15)
[2018-10-11] MEDS ORDERED: Sterile Water 10 ML VIAL FS SCH (20:15)
[2018-10-11] MEDS: Melatonin 3 MG TAB PO SCH (21:15)
[2018-10-12] MEDS: Piperacillin/Tazobactam 3.375 GM in Sodium Chloride 0.9% 100 ML IVPB SCH ×4 (05:12→22:34)
[2018-10-12 05:17] LABS: #Eosinphils 0.2 thou/uL (0.0-0.7); #Lymphocytes 1.6 thou/uL (1.20-3.40); #Monocytes 0.7 thou/uL (0.11-0.59); #Neutrophils 13.5 thou/uL (1.40-6.50); %Lymphocytes 9.8 % (21.0-51.0); %Monocytes 4.3 % (0.0-10.0); %Neutrophils 84.9 % (42.0-75.0); Hemoglobin 9.9 g/dL (14.0-18.0); Mean Corpuscular HGB CONC 32.2 g/dL (32.0-36.0); Mean Corpuscular Hemoglobin 30.6 pg (27.0-31.0); Mean Corpuscular Volume 94.9 fL (78.0-98.0); Mean Platelet Volume 8.7 fL (7.4-10.4); Platelet Count 172 thou/uL (130-400); RBC Distribution Width 14.7 % (11.5-14.5); Red Blood Cell (RBC) Count 3.25 mill/uL (4.70-6.10); White Blood Cell (WBC) Count 15.9 thou/uL (4.8-10.8)
[2018-10-12 05:44] LABS: Anion Gap 10 mmol/L (10-20); BUN (Urea Nitrogen) 40 mg/dL (8.4-25.7); Calc. Creatinine Clearance 49 mL/min (70-130); Calcium 7.9 mg/dL (7.8-10.44); Carbon Dioxide 25 mmol/L (23-31); Chloride 113 mmol/L (98-107); Estimated GFR-MDRD 59; Glucose 138 mg/dL (83-110); Potassium 3.8 mmol/L (3.5-5.1); Sodium 144 mmol/L (136-145)
[2018-10-12] MEDS ORDERED: Furosemide 40 MG/4 ML VIAL SLOW IVP SCH (07:00)
[2018-10-12] MEDS ORDERED: Potassium Chloride 20 MEQ/100 ML PREMIX BAG IVPB SCH (07:00)
[2018-10-12] MEDS: Metoprolol Tartrate 25 MG TAB PO SCH ×2 (08:55→20:41)
[2018-10-12] MEDS: Famotidine/PF 20 mg/2ml Vial SLOW IVP SCH (08:55)
[2018-10-12] MEDS: Potassium Chloride 40 MEQ in Premix Bag 1 BAG IVPB SCH (08:55)
--- NOTE | 2018-10-12 14:56 | PRG ---
DATE OF SERVICE: 10/12/2018 Jersey Schuster is still weak and very hard of hearing. His swallowing is questionable. He also declines to even try to eat anything at this point in time. Unfortunately, he has no family to make decisions for him. He is agreeable to PEG placement as I explained to him today. His lungs, heart, and abdomen remain unchanged. I will consult Gastroenterology to consider PEG placement. If we can get several 100 calories today in him via a PEG and let him supplement nutrition by mouth as he gets stronger, hopefully, he will survive this. I would hate for him to survive an abdominal aortic aneurysm rupture and from an inability to take in liquids or solids. This is reasonable for now. He will then need placement in some type of long-term care facility. Job ID: [id number]
[2018-10-12] MEDS: Melatonin 3 MG TAB PO SCH (20:41)
[2018-10-13] MEDS: Piperacillin/Tazobactam 3.375 GM in Sodium Chloride 0.9% 100 ML IVPB SCH ×4 (04:59→22:59)
[2018-10-13 05:18] LABS: #Eosinphils 0.2 thou/uL (0.0-0.7); #Lymphocytes 1.1 thou/uL (1.20-3.40); #Monocytes 0.5 thou/uL (0.11-0.59); #Neutrophils 14.2 thou/uL (1.40-6.50); %Basophils 0.1 % (0.0-1.0); %Lymphocytes 6.8 % (21.0-51.0); %Monocytes 3.4 % (0.0-10.0); %Neutrophils 88.8 % (42.0-75.0); Hemoglobin 10.7 g/dL (14.0-18.0); Mean Corpuscular Hemoglobin 30.3 pg (27.0-31.0); Mean Corpuscular Volume 94.8 fL (78.0-98.0); Mean Platelet Volume 8.9 fL (7.4-10.4); Platelet Count 171 thou/uL (130-400); RBC Distribution Width 15.4 % (11.5-14.5); Red Blood Cell (RBC) Count 3.54 mill/uL (4.70-6.10)
[2018-10-13 05:37] LABS: Anion Gap 11 mmol/L (10-20); BUN (Urea Nitrogen) 40 mg/dL (8.4-25.7); Calc. Creatinine Clearance 48 mL/min (70-130); Calcium 7.9 mg/dL (7.8-10.44); Carbon Dioxide 25 mmol/L (23-31); Chloride 115 mmol/L (98-107); Estimated GFR-MDRD 55; Glucose 124 mg/dL (83-110); Potassium 3.5 mmol/L (3.5-5.1); Sodium 147 mmol/L (136-145)
--- NOTE | 2018-10-13 08:51 | CON ---
DATE OF CONSULTATION: REASON FOR CONSULT: Request for PEG tube placement. HISTORY OF PRESENT ILLNESS: Mr. Schuster is an 87-year-old gentleman who came in to the hospital on October 03 with acute rupture of the aortic aneurysm. Postop, he has done well. Renal function stayed stable. However, he has not been eating well and there is some concern about cough earlier in the week. He did have some pleural effusions and for a time he was receiving feeds per NG tube. He was ultimately extubated on the . There was some concern that he may have had a small episode of aspiration prior to that. Dr. Martell has indicated he has some clinical weakness as long as weakness related to his advanced age and what he has been through. Called me today and asked me about placing a PEG tube. I talked with the nurses, he has no family available. He has two friends from the [place] area but apparently he is estranged from his children. He can hear but you have to talk loud though, but he is not talking much today as he is a little bit tachypneic. He did have an ileus at that time, but he has had no vomiting per nurse's report. He has had no fever. He is not required oxygen today. He did get a low dose of Lasix today. PAST MEDICAL HISTORY: He is status post surgery for aortic endarterectomy. Did have some post aspiration pneumonia after intubation. MEDICATIONS: 1. Tylenol. 2. Maalox. 3. DuoNeb. 4. Dulcolax. 5. Pepcid. 6. Glucagon. 7. Apresoline. 8. Lopressor. 9. Zofran. 10. Zosyn. 11. Potassium chloride. SOCIAL HISTORY: The patient is living in [place]. He really cannot give much more history other than that. PHYSICAL EXAMINATION: VITAL SIGNS: Temperature is 99.4, respirations 32, pulse 87, blood pressure 97/57 to 103/53. GENERAL: He is a little bit tachypneic. He is able to talk, but is very hard of hearing. HEENT: Oropharynx reveals no lesions. NECK: Supple. No adenopathy. LUNGS: Actually clear without wheezing. HEART: Regular rate and rhythm. ABDOMEN: Nontender. There is no rebound or guarding. There is radha going from his chest region all the way down through his abdomen. Wound seems to be healing well. EXTREMITIES: Revealed no edema. LABORATORY DATA: White count 15.9, yesterday was 12.4, hemoglobin is 9.9, platelet count 172. INR 1.3. Sodium 144, potassium 3.8, chloride 113, bicarb 24, BUN is 40, creatinine 1.16. ASSESSMENT: 1. Status post emergent surgery for aortic aneurysm repair. 2. Postsurgical aspiration, but he has been extubated now. 3. Failure to thrive, not eating well with concern for his oropharyngeal dysphagia with speech pathologist. RECOMMENDATIONS: Depending on his respiratory status, we are going to schedule him tomorrow for a PEG tube. If he has further decompensation in his respiratory status, he probably will not be able to have the sedation required for that, we can put a Dobhoff back in for feeding. We will follow along with you. Job ID: [id number]
[2018-10-13] MEDS: Famotidine/PF 20 mg/2ml Vial SLOW IVP SCH (14:11)
[2018-10-13] MEDS: Metoprolol Tartrate 25 MG TAB PO SCH ×2 (14:12→21:31)
[2018-10-13] MEDS ORDERED: PROPOFOL 200 MG/20 ML VIAL ONE (15:52)
--- NOTE | 2018-10-13 17:13 | PRG ---
DATE OF SERVICE: 10/13/2018 SUBJECTIVE: Jersey Schuster has his PEG now. OBJECTIVE: VITAL SIGNS: He is afebrile. Heart rate is 106, respiratory rate is 28, oximetry is 93% on 2 L, blood pressure 157/75. GENERAL: He is in no distress. LUNGS: Clear. HEART: Regular rhythm. ABDOMEN: Soft, not guarding. LABORATORY DATA: White count 16, hemoglobin 10.7, platelets 171. Sodium 147, potassium 3.5, chloride 115, bicarb 25, BUN 40, and creatinine 1.23. IMPRESSION: 1. Status post emergent abdominal aortic aneurysm repair. 2. Status post PEG for an inability to take adequate nutrition and difficulty with swallowing. 3. Advanced age. 4. Normal left ventricular systolic function. 5. Mild pulmonary hypertension? underlying obstructive lung disease. Overall, he appears to be stable. Placement is the next step for nutrition. Physical Therapy. Job ID: [id number]
--- NOTE | 2018-10-13 18:45 | OP ---
DATE OF PROCEDURE: 10/13/2018 PROCEDURES PERFORMED: Esophagogastroduodenoscopy with percutaneous endoscopic gastrostomy tube placement. PREOPERATIVE DIAGNOSIS: Oropharyngeal dysphagia. DESCRIPTION OF PROCEDURE: Informed consent was obtained. The patient was sedated with total intravenous anesthesia. There was a large amount of dried bilious adherent food suctioned from the laryngeal and pharyngeal area. The endoscope was then advanced to the second portion of the duodenum and retroflexion was performed in the stomach. Erosive grade B esophagitis was present. A small hiatal hernia was present. The gastric mucosa was otherwise unremarkable. The pylorus and first and second portions of the duodenum were normal. The stomach was insufflated and the appropriate site was transilluminated in the left upper quadrant. The skin was sterilized with chlorhexidine. The site was anesthetized with 5 mL of 1% lidocaine. A small skin incision was performed. The catheter was placed through the abdominal wall into the stomach under direct visualization in a single attempt. The wire was passed through the catheter and grasped with a snare and pulled out through the patient's mouth. A 20-Burundian gastrostomy tube was then placed by the pull-through technique. The external bumper was placed at 3 cm. Antibiotic ointment was placed. He did receive his scheduled antibiotics prior to the procedure. IMPRESSION: 1. Dry bilious food suctioned from the laryngeal and pharyngeal area. 2. Erosive esophagitis, grade B. 3. Small hiatal hernia. 4. A 20-Burundian gastrostomy tube placed in the distal body of the stomach in the left upper quadrant of the abdomen. RECOMMENDATIONS: Start feeds in 12 hours. Job ID: [id number]
[2018-10-13] MEDS: Melatonin 3 MG TAB PO SCH (21:32)
[2018-10-14 04:52] LABS: #Eosinphils 0.1 thou/uL (0.0-0.7); #Lymphocytes 0.9 thou/uL (1.20-3.40); #Monocytes 0.4 thou/uL (0.11-0.59); #Neutrophils 10.7 thou/uL (1.40-6.50); %Basophils 0.2 % (0.0-1.0); %Eosinophils 1.1 % (0.0-10.0); %Lymphocytes 7.4 % (21.0-51.0); %Monocytes 3.4 % (0.0-10.0); Hemoglobin 10.2 g/dL (14.0-18.0); Mean Corpuscular HGB CONC 32.4 g/dL (32.0-36.0); Mean Corpuscular Hemoglobin 31.1 pg (27.0-31.0); Mean Corpuscular Volume 95.9 fL (78.0-98.0); Mean Platelet Volume 9.1 fL (7.4-10.4); Platelet Count 167 thou/uL (130-400); RBC Distribution Width 15.7 % (11.5-14.5); Red Blood Cell (RBC) Count 3.27 mill/uL (4.70-6.10); White Blood Cell (WBC) Count 12.1 thou/uL (4.8-10.8)
[2018-10-14 05:08] LABS: Anion Gap 15 mmol/L (10-20); BUN (Urea Nitrogen) 34 mg/dL (8.4-25.7); Calc. Creatinine Clearance 56 mL/min (70-130); Calcium 7.6 mg/dL (7.8-10.44); Carbon Dioxide 20 mmol/L (23-31); Chloride 117 mmol/L (98-107); Estimated GFR-MDRD 66; Glucose 94 mg/dL (83-110); Potassium 3.6 mmol/L (3.5-5.1); Sodium 148 mmol/L (136-145)
[2018-10-14] MEDS: Piperacillin/Tazobactam 3.375 GM in Sodium Chloride 0.9% 100 ML IVPB SCH ×4 (05:27→22:29)
[2018-10-14] MEDS: Potassium Chloride 40 MEQ in Premix Bag 1 BAG IVPB SCH (09:23)
[2018-10-14] MEDS: Famotidine/PF 20 mg/2ml Vial SLOW IVP SCH (09:23)
[2018-10-14] MEDS: Metoprolol Tartrate 25 MG TAB PO SCH ×2 (09:23→21:09)
[2018-10-14] MEDS ORDERED: Haloperidol Lactate 5 MG/ML VIAL ONE (14:31)
--- NOTE | 2018-10-14 16:59 | PRG ---
DATE OF SERVICE: 10/14/2018 SUBJECTIVE: Mr. Schuster is confused. He has lucid moments. He vomited today and did not tolerate his feeds well. OBJECTIVE: VITAL SIGNS: , oxygen saturation 99% on 2 L. Pulse is in the 110s to 120s, blood pressure 129/88. LUNGS: Clear to auscultation bilaterally. HEART: Tachycardic, S1 and S2. ABDOMEN: Soft. The PEG site is clear and appears healthy. The bumper is current position. EXTREMITIES: No lower extremity edema. IMPRESSION: 1. Oropharyngeal dysphagia, status post percutaneous endoscopic gastrostomy tube placement yesterday. The PEG site looks healthy and he did start feeds, every vomited them. 2. He did have some retained bilious fluid in the stomach noted at the time of esophagogastroduodenoscopy. This was suctioned out then. He may have some degree of gastric ileus. We will add a trial of metoclopramide see if this can help him tolerate his feeds better. RECOMMENDATIONS: 1. IV metoclopramide. 2. He is on antibiotics for suspected aspiration pneumonia. Job ID: [id number]
--- NOTE | 2018-10-14 20:42 | PRG ---
DATE OF SERVICE: 10/14/2018 SUBJECTIVE: Mr. Schuster is intermittently getting more encephalopathic. At times, he is quite lucid and other times "it is untime, you get me to the truck and let's go." PHYSICAL EXAMINATION: VITAL SIGNS: Remained stable. Blood pressure 133/65, heart rate is in the high 90s to low one 100s, respiratory rates in the 20s, oximetry is 96% on 2 L. He did have a significant amount of green vomiting this morning. LUNGS: Remarkably clear. HEART: Regular rhythm. ABDOMEN: Soft, does not sound like he aspirated, but he certainly did when he vomited after he was extubated. He was started on Reglan this afternoon. He was also started on Haldol for his intermittent agitation this afternoon. IMPRESSION: Status post abdominal aortic aneurysm repair emergently. Difficult social situation. He told Catarino, his nurse this morning when he was coherent that all of his children had and his had . We were told by his friend that he had no contact with his living children, so I am not sure which is true. If I see his friend again (which I have not seen since the day after surgery), I will have this discussion with him, but in any event they certainly would not be considered guardians since they have no contact with him even if they are alive. The next step is placement in correction. He needs skilled care, but I am not optimistic that he can fully recover from this. Hopefully with the Haldol or maybe tomorrow since Seroquel will see some stability in his encephalopathy. Starting him on Precedex would be an another option. He is from a pulmonary cardiovascular standpoint, stable at this time. Job ID: [id number]
[2018-10-14] MEDS: Melatonin 3 MG TAB PO SCH (21:09)
[2018-10-14] MEDS: Metoclopramide HCl 10 MG/2 ML VIAL IVP SCH (22:29)
[2018-10-14] MEDS: Acetaminophen 650 MG/20.3 ML UDCUP PO PRN (22:40)
[2018-10-15] MEDS: Piperacillin/Tazobactam 3.375 GM in Sodium Chloride 0.9% 100 ML IVPB SCH (05:41)
[2018-10-15] MEDS: Metoclopramide HCl 10 MG/2 ML VIAL IVP SCH ×3 (05:42→21:08)
[2018-10-15] MEDS: Potassium Chloride 40 MEQ in Premix Bag 1 BAG IVPB SCH (08:56)
[2018-10-15] MEDS: Famotidine/PF 20 mg/2ml Vial SLOW IVP SCH (08:56)
[2018-10-15] MEDS: Metoprolol Tartrate 25 MG TAB PO SCH ×2 (08:56→21:08)
--- NOTE | 2018-10-15 09:51 | PRG ---
DATE OF SERVICE: 10/15/2018 SUBJECTIVE: Mr. Putnam feels heart rate is in the 80s, respiratory rates in the 20s, oximetry is 98%, and blood pressure 146/99. Still confused, but more cooperative today. Lungs are clear. Heart, regular rhythm. Abdomen is soft and nontender. His feedings were restarted last night. He vomited again. I have given the nurses order to keep him n.p.o. until Gastroenterology evaluates him. At the most, he needs trickle feeds, then he needs more time for the Reglan to hopefully lead to some improvement. This is a big limiting factor at this time. Once he is stable from a Nutrition standpoint, he could be transferred to a skilled facility. No new lab today. He continues with a hyperchloremic acidosis on yesterday's lab. I planned to stop his Zosyn. He has had 7 days of IV Zosyn, which should be adequate if he did have an aspiration-induced infection. We will continue to watch his temperature curve. We will probably need to start some D5W since he is not receiving anything via his PEG. Job ID: [id number]
[2018-10-15] MEDS: Dextrose 5% in Water 1,000 ML IV SCH ×2 (10:05→22:18)
[2018-10-15] MEDS: Haloperidol Lactate 5 MG/ML VIAL IM PRN ×2 (14:47→22:18)
[2018-10-15] MEDS: Melatonin 3 MG TAB PO SCH (21:08)
[2018-10-15] MEDS: Acetaminophen 650 MG/20.3 ML UDCUP PO PRN (21:18)
[2018-10-16] MEDS: Haloperidol Lactate 5 MG/ML VIAL IM PRN ×2 (04:51→12:25)
[2018-10-16] MEDS: Metoclopramide HCl 10 MG/2 ML VIAL IVP SCH ×3 (06:04→21:52)
[2018-10-16] MEDS: Metoprolol Tartrate 25 MG TAB PO SCH ×2 (09:34→21:53)
[2018-10-16] MEDS: Potassium Chloride 40 MEQ in Premix Bag 1 BAG IVPB SCH (09:34)
[2018-10-16] MEDS: Famotidine/PF 20 mg/2ml Vial SLOW IVP SCH (09:34)
--- NOTE | 2018-10-16 11:57 | PRG ---
DATE OF SERVICE: 10/16/2018 SUBJECTIVE: Jersey Schuster is still intermittently confused. He is usually more lucid in the morning. OBJECTIVE: VITAL SIGNS: Now, his heart rate is 85, respiratory rate is 16, blood pressure is 130/65, and oximetry is 93. GENERAL: We talked about transfer to a skilled facility and he says he is agreeable to this, although he wants to go home. LUNGS: Clear. HEART: Regular rhythm. ABDOMEN: Soft. IMPRESSION AND PLAN: No more nausea or vomiting was reported. Perhaps, the Reglan is working. We will try to advance his feeds. Job ID: [id number]
[2018-10-16] MEDS: Dextrose 5% in Water 1,000 ML IV SCH (12:25)
--- NOTE | 2018-10-16 17:09 | PRG ---
DATE OF SERVICE: 10/16/2018 SUBJECTIVE: Mr. Schuster is tolerating his oral tube feeds with the rate that advanced to 50 mL/h. He has no nausea or abdominal pain. OBJECTIVE: VITAL SIGNS: Temperature 99.8, pulse 104, blood pressure 147/85. GENERAL: He is in no acute distress. He is awake and intermittently, appropriately responds to questions. LUNGS: Clear to auscultation bilaterally. HEART: Regular rate and rhythm without murmur. ABDOMEN: Soft, nontender, and nondistended. PEG site has some dried secretions around it, but appears healthy. EXTREMITIES: No lower extremity edema. IMPRESSION: 1. Oropharyngeal dysphagia, status post PEG tube placement. 2. Ileus secondary to systemic disease. He seems to be improving overall. He is tolerating his tube feeds now. RECOMMENDATIONS: 1. Continue the tube feeds to goal rate. 2. Can likely discontinue the Reglan after couple of days. 3. Dr. Abel will be covering over the weekend. Please call him if needed. Job ID: [id number]
[2018-10-16 21:39] LABS: Actual Bicarbonate (HCO3a) 21.5 mEq/L (22-28); Base Excess (BEa) -1.4 mEq/L (-2.0 to +3.0); Calcium, Ionized 1.12 mmol/L (1.12-1.30); Carboxyhemoglobin (COHb) 2.1 gm% (0.0-3.0); Hemoglobin (Hb) 10.9 g/dL (14.0-18.0); Potassium - ABG Lab 3.97 mmol/L (3.70-5.30); pH, Arterial 7.47 (7.35-7.45)
[2018-10-16 21:40] LABS: O2 Tension (PaO2) 50.6 mmHg (> 60.0)
[2018-10-16 21:41] LABS: Puncture Site R BRACHIAL
[2018-10-16] MEDS: Acetaminophen 1,000 MG in Premix Bag 1 BAG IVPB PRN (21:52)
[2018-10-16] MEDS: Piperacillin/Tazobactam 3.375 GM in Sodium Chloride 0.9% 100 ML IVPB SCH (21:53)
[2018-10-16] MEDS: Melatonin 3 MG TAB PO SCH (21:53)
--- NOTE | 2018-10-16 21:53 | RAD ---
CHEST ONE VIEW: 10/16/18 HISTORY: Respiratory distress, suspected aspiration. COMPARISON: 10/08/18. FINDINGS: There is rotation to the right. Left central line in place. The previously noted NG tubes and endotr acheal tubes have been removed. There is bilateral vascular congestion with some patchy interstitial and alveolar parenchymal changes in both lower lung zones, nonspecific. This could represent some min imal edema or bibasilar pneumonia. Blunting of the costophrenic angles probably representing small pl eural effusions. IMPRESSION: Progressive bilateral vascular congestion and increased markings bilaterally, particularly in the mid and lower lung zone with possibilities including that of some worsening congestion and possible deve loping edema versus some bibasilar pneumonia or pneumonitis. Probable small pleural effusion. Continu ed short term followup. POS: CELESTINA
[2018-10-16] MEDS: Ondansetron PF 4 MG/2 ML Vial IVP PRN (21:54)
[2018-10-17 00:22] LABS: Bilirubin Large (Negative); Blood, Urine Large (Negative); Clarity CLOUDY (Clear); Glucose, Urine (Dipstick) Negative (Negative); Leukocyte Moderate (Negative); Nitrite Positive (Negative); Protein, Urine (Dipstick) 100 mg/dL (Neg-Trace); Specific Gravity, Urine 1.031 (1.002-1.036); Urobilinogen > or = 8.0 mg/dL (0.2-1.0); pH, Urine 5.5 (5.0-9.0)
[2018-10-17 00:23] LABS: Bacteria/HPF None Seen HPF (None Seen); RBC/HPF GREATER THAN 50-TNTC HPF (0-3); WBC/HPF 21-50 HPF (0-3)
[2018-10-17 00:24] LABS: Pathc Cast-AUWi Flag 4.51 (0-2.49)
[2018-10-17] MEDS: Dextrose 5% in Water 1,000 ML IV SCH ×3 (00:24→16:41)
[2018-10-17 00:32] LABS: Hyaline Casts/LPF 4-6 HYALINE CAST LPF (0-3 Hyaline); Other Casts/LPF None Seen LPF (0-3 Hyaline); Renal Epithelial None Seen HPF (0-3); Transitional Epithelial NONE SEEN HPF (0-3)
[2018-10-17] MEDS ORDERED: Clopidogrel Bisulfate 75 MG TAB ONE (03:36)
[2018-10-17] MEDS: Piperacillin/Tazobactam 3.375 GM in Sodium Chloride 0.9% 100 ML IVPB SCH ×4 (03:46→21:36)
[2018-10-17] MEDS: Metoclopramide HCl 10 MG/2 ML VIAL IVP SCH ×3 (05:37→21:37)
[2018-10-17] MEDS: Potassium Chloride 40 MEQ in Premix Bag 1 BAG IVPB SCH (08:55)
[2018-10-17] MEDS: Famotidine/PF 20 mg/2ml Vial SLOW IVP SCH (08:56)
[2018-10-17] MEDS: Metoprolol Tartrate 25 MG TAB PO SCH ×2 (08:56→21:50)
[2018-10-17 13:07] LABS: Anion Gap 8 mmol/L (10-20); BUN (Urea Nitrogen) 31 mg/dL (8.4-25.7); Calc. Creatinine Clearance 47 mL/min (70-130); Calcium 7.5 mg/dL (7.8-10.44); Carbon Dioxide 25 mmol/L (23-31); Chloride 120 mmol/L (98-107); Estimated GFR-MDRD 55; Glucose 110 mg/dL (83-110); Potassium 4.6 mmol/L (3.5-5.1); Sodium 148 mmol/L (136-145)
--- NOTE | 2018-10-17 16:17 | PRG ---
DATE OF SERVICE: 10/17/2018 SERVICE: Pulmonary Medicine. INTERVAL HISTORY: The patient had a rough night last night. He ended up getting feeds through his PEG tube. He then had a very severe aspiration event in which he had straight tube feeds coming out of his posterior oropharynx and his lungs. He was NT suctioned. Over 20 mL of tube feeds were ultimately suctioned from that area. We then hooked up his PEG tube to suction. He had 800 mL of tube feeds out. He has remained on intermittent suction through time. He is having nothing more than bile come out at this point. He cannot provide any additional elements of the history today. He indicates that he is not short of breath and says he does not have any chest discomfort. That being said, he also tells me that he plans on going home tomorrow. He denies any fevers or chills. I cannot get any reliable history from him however. PHYSICAL EXAMINATION: VITAL SIGNS: Afebrile, T-max 103, pulse 98, blood pressure 125/103, respirations 39, saturation 95% on 41% FiO2 delivered via high-flow nasal cannula. HEENT: Normocephalic and atraumatic. Sclerae white. Conjunctivae pink. Oral mucosa is moist without lesions. LUNGS: Rhonchi extensive and present throughout bilateral lung bermudez. He has got decent air entry. There is a slightly prolonged expiratory phase, but no wheezing. HEART: Normal rate, regular. ABDOMEN: Soft, nontender, and nondistended. Bowel sounds are positive. MUSCULOSKELETAL: No cyanosis or clubbing. : Lr catheter in place. NEUROLOGIC: Grossly nonfocal. LABORATORY DATA: WBC 12.1, hemoglobin 10.2, platelets 167,000. Neutrophil count is 88%. PH 7.47, pCO2 30, PO2 51. Creatinine 1.24 and gently uptrending, BUN 31 and improving, chloride and sodium are both remain elevated at 120 and 148. Blood cultures x2 and urine cultures are completely unremarkable, though the urine culture is positive for significant white blood cells, red blood cells, leukocyte esterase, bilirubin, and nitrites. IMAGING: Chest x-ray demonstrates findings consistent with overt aspiration. Underlying infectious process cannot be completely excluded. Vascular congestion is noted. Left subclavian central venous catheter terminates in very good position. ASSESSMENT: 1. Acute hypoxic respiratory failure secondary to overt aspiration event. 2. Healthcare associated pneumonia secondary to aspiration. 3. Severe sepsis. 4. Metabolic encephalopathy. 5. Hypernatremia. 6. Hyperchloremia. 7. Hyperbilirubinemia. DISCUSSION AND PLAN: I will get liver function studies with tomorrow morning's laboratories. We will continue our empiric antibiotics directed at this gross aspiration event. We will continue our free water through time. Pulmonary Critical Care will continue to follow very closely. He will need to remain in the IMCU on the high-flow nasal cannula. He would not be a good candidate for BiPAP given his recent events. Job ID: [id number]
[2018-10-17] MEDS: Acetaminophen 1,000 MG in Premix Bag 1 BAG IVPB PRN (19:42)
[2018-10-17] MEDS: Melatonin 3 MG TAB PO SCH (21:50)
[2018-10-18] MEDS: Dextrose 5% in Water 1,000 ML IV SCH ×3 (01:05→13:49)
[2018-10-18] MEDS: Piperacillin/Tazobactam 3.375 GM in Sodium Chloride 0.9% 100 ML IVPB SCH ×4 (04:12→21:16)
[2018-10-18 04:26] LABS: #Eosinphils 0.2 thou/uL (0.0-0.7); #Lymphocytes 1.1 thou/uL (1.20-3.40); #Monocytes 0.4 thou/uL (0.11-0.59); #Neutrophils 13.9 thou/uL (1.40-6.50); %Basophils 0.3 % (0.0-1.0); %Eosinophils 1.6 % (0.0-10.0); %Lymphocytes 6.8 % (21.0-51.0); %Monocytes 2.5 % (0.0-10.0); %Neutrophils 88.9 % (42.0-75.0); Hemoglobin 10.1 g/dL (14.0-18.0); Mean Corpuscular HGB CONC 31.4 g/dL (32.0-36.0); Mean Corpuscular Volume 98.7 fL (78.0-98.0); Platelet Count 124 thou/uL (130-400); Red Blood Cell (RBC) Count 3.25 mill/uL (4.70-6.10); White Blood Cell (WBC) Count 15.6 thou/uL (4.8-10.8)
[2018-10-18 04:38] LABS: ALT (SGPT) 13 U/L (8-55); AST (SGOT) 29 U/L (5-34); Alkaline Phosphatase 52 U/L (40-150); Anion Gap 9 mmol/L (10-20); BUN (Urea Nitrogen) 29 mg/dL (8.4-25.7); Bilirubin, Direct 3.9 mg/dL (0.1-0.3); Bilirubin, Total 5.1 mg/dL (0.2-1.2); Calc. Creatinine Clearance 48 mL/min (70-130); Calcium 7.3 mg/dL (7.8-10.44); Carbon Dioxide 23 mmol/L (23-31); Chloride 117 mmol/L (98-107); Estimated GFR-MDRD 56; Glucose 107 mg/dL (83-110); Phosphorus 2.7 mg/dL (2.3-4.7); Potassium 3.6 mmol/L (3.5-5.1); Protein, Total 4.5 g/dL (5.8-8.1); Sodium 145 mmol/L (136-145)
[2018-10-18] MEDS: Metoclopramide HCl 10 MG/2 ML VIAL IVP SCH ×3 (06:00→21:16)
[2018-10-18] MEDS: Metoprolol Tartrate 25 MG TAB PO SCH ×2 (09:15→21:16)
[2018-10-18] MEDS: Famotidine/PF 20 mg/2ml Vial SLOW IVP SCH (09:15)
[2018-10-18] MEDS: Acetaminophen 1,000 MG in Premix Bag 1 BAG IVPB PRN (09:16)
[2018-10-18] MEDS ORDERED: Furosemide 40 MG/4 ML VIAL SLOW IVP SCH (12:30)
[2018-10-18] MEDS ORDERED: Potassium Chloride 40 MEQ in Premix Bag 1 BAG IVPB SCH (12:30)
[2018-10-18] MEDS: Potassium Chloride 10 MEQ in Premix Bag 1 BAG IVPB SCH ×4 (12:46→15:49)
--- NOTE | 2018-10-18 13:00 | PRG ---
DATE OF SERVICE: SERVICE: Pulmonary Medicine. INTERVAL HISTORY: The patient looks much improved today. He is coughing a little bit. He has got rhonchorous breath sounds. Otherwise, there has been no interval change to his condition. He actually tells some jokes with his family. His son is actually available at bedside today. PHYSICAL EXAMINATION: VITAL SIGNS: Afebrile with a T-max last night of 101.8. Pulse 92, blood pressure 97/52, respirations 34, saturations 93% on 50% FiO2 delivered via high-flow nasal cannula. HEENT: Normocephalic and atraumatic. Sclerae white. Conjunctivae pink. Oral mucosa is moist without lesions. LUNGS: Extensive rhonchi are present. There is a prolonged expiratory phase. No wheezing or crackles are appreciated. HEART: Normal rate, regular. ABDOMEN: Soft, nontender, and nondistended. Bowel sounds are positive. MUSCULOSKELETAL: No cyanosis or clubbing. There is no pitting in the bilateral lower extremities. NEUROLOGIC: Grossly nonfocal. LABORATORY DATA: WBC is increased to 15.6, hemoglobin 10.1 and stable, platelets 124,000 and dropping off slightly. Sodium 145 and now downtrending, potassium 3.6. Chloride 117 and downtrending, creatinine 1.22 and improving. Basic metabolic profile is otherwise unremarkable. Calcium 7.3. Phosphorus 2.7 and unremarkable. Total bilirubin is 5.1, which is significantly elevated. Direct bilirubin 3.9. AST, ALT, and alkaline phosphatase are all within normal limits. Blood cultures x2 and urine culture unremarkable. ASSESSMENT: 1. Acute hypoxic respiratory failure secondary to massive aspiration event. 2. Healthcare-associated pneumonia secondary to aspiration. 3. Severe sepsis. 4. Metabolic encephalopathy, improving. 5. Ileus. 6. Hypernatremia, resolving. 7. Hyperchloremia, resolving. 8. Hyperbilirubinemia. DISCUSSION AND PLAN: We will trend the liver function studies. If a trend upward, additional investigation may be warranted. I will drop our D5 water down to 60 per hour. Potassium will be replaced today. Otherwise, supportive measures will be continued. We will wean oxygen away as tolerated. Other supportive measures including mobility efforts and antibiotics will be continued through time. I will clamp his NG tube. If the residuals are low in 4 hours, we will cautiously re-attempt tube feeds. Job ID: [id number] [facility]
[2018-10-18] MEDS: Melatonin 3 MG TAB PO SCH (21:29)
[2018-10-19] MEDS: Metoclopramide HCl 10 MG/2 ML VIAL IVP SCH ×3 (05:22→20:58)
[2018-10-19] MEDS: Piperacillin/Tazobactam 3.375 GM in Sodium Chloride 0.9% 100 ML IVPB SCH ×4 (05:22→20:55)
[2018-10-19] MEDS: Dextrose 5% in Water 1,000 ML IV SCH ×3 (05:22→21:42)
[2018-10-19 05:29] LABS: #Eosinphils 0.4 thou/uL (0.0-0.7); #Monocytes 0.3 thou/uL (0.11-0.59); #Neutrophils 11.2 thou/uL (1.40-6.50); %Basophils 0.1 % (0.0-1.0); %Eosinophils 2.9 % (0.0-10.0); %Lymphocytes 7.8 % (21.0-51.0); %Monocytes 2.6 % (0.0-10.0); %Neutrophils 86.5 % (42.0-75.0); Hemoglobin 10.5 g/dL (14.0-18.0); Mean Corpuscular HGB CONC 31.7 g/dL (32.0-36.0); Mean Corpuscular Hemoglobin 31.1 pg (27.0-31.0); Mean Corpuscular Volume 98.2 fL (78.0-98.0); Mean Platelet Volume 9.9 fL (7.4-10.4); Platelet Count 132 thou/uL (130-400); RBC Distribution Width 16.8 % (11.5-14.5); Red Blood Cell (RBC) Count 3.38 mill/uL (4.70-6.10)
[2018-10-19 05:45] LABS: Anion Gap 12 mmol/L (10-20); BUN (Urea Nitrogen) 33 mg/dL (8.4-25.7); Calc. Creatinine Clearance 41 mL/min (70-130); Calcium 7.4 mg/dL (7.8-10.44); Carbon Dioxide 20 mmol/L (23-31); Chloride 113 mmol/L (98-107); Estimated GFR-MDRD 46; Glucose 122 mg/dL (83-110); Potassium 3.4 mmol/L (3.5-5.1); Sodium 142 mmol/L (136-145)
[2018-10-19 05:46] LABS: ALT (SGPT) 12 U/L (8-55); AST (SGOT) 34 U/L (5-34); Alkaline Phosphatase 63 U/L (40-150); Bilirubin, Direct 3.5 mg/dL (0.1-0.3); Bilirubin, Total 4.4 mg/dL (0.2-1.2); Protein, Total 4.9 g/dL (5.8-8.1)
[2018-10-19] MEDS: Metoprolol Tartrate 25 MG TAB PO SCH ×2 (09:39→20:58)
[2018-10-19] MEDS: Famotidine/PF 20 mg/2ml Vial SLOW IVP SCH (09:39)
--- NOTE | 2018-10-19 15:16 | PRG ---
DATE OF SERVICE: 10/19/2018 SUBJECTIVE: Jersey Schuster appears a little better than he has felt. He is clinically stable. He remains afebrile. His respiratory rate is variable and consistent with several days in the 20s, intermittently in the 30s, oximetry is 98%, blood pressure 131/64. IMAGING: Chest radiograph done on Friday still shows an increase in interstitial markings. LABORATORY DATA: White count 13, hemoglobin 10.5, platelets 132. Sodium 142, potassium 3.4, chloride 113, bicarb 20, BUN 33, and creatinine 1.45. Intake and outputs, positive 385. IMPRESSION: 1. Status post emergent abdominal aortic aneurysm repair. 2. Aspiration event, treated with seven days of Zosyn. 3. Extreme deconditioning with advanced age. 4. Intermittent encephalopathy. 5. Preserved left ventricular systolic function. 6. Nausea, vomiting, and postop ileus. I think aspirated secretions are the biggest factor that he is facing. We do not have a quick fix for this. He has a weak cough and inability to consistently clear secretions. Job ID: [id number]
[2018-10-19] MEDS: Melatonin 3 MG TAB PO SCH (20:58)
--- NOTE | 2018-10-19 22:19 | EKG ---
Test Reason : Blood Pressure : / mmHG Vent. Rate : 090 BPM Atrial Rate : 090 BPM P-R Int : 166 ms QRS Dur : 098 ms QT Int : 398 ms P-R-T Axes : 051 -65 093 degrees QTc Int : 486 ms Normal sinus rhythm Left axis deviation Nonspecific ST abnormality Abnormal QRS-T angle, consider primary T wave abnormality Prolonged QT Abnormal ECG When compared with ECG of 31-JUL-2008 02:31, T wave inversion no longer evident in Inferior leads QT has lengthened Confirmed by Melissa BALL ([id number]) on 10/19/2018 10:19:03 PM Referred By: DUSTIN Confirmed By:Melissa BALL
[2018-10-20] MEDS: Piperacillin/Tazobactam 3.375 GM in Sodium Chloride 0.9% 100 ML IVPB SCH ×2 (04:40→08:54)
[2018-10-20 05:06] LABS: #Eosinphils 0.3 thou/uL (0.0-0.7); #Lymphocytes 0.9 thou/uL (1.20-3.40); #Monocytes 0.3 thou/uL (0.11-0.59); #Neutrophils 5.6 thou/uL (1.40-6.50); %Basophils 0.3 % (0.0-1.0); %Lymphocytes 12.1 % (21.0-51.0); %Monocytes 3.7 % (0.0-10.0); %Neutrophils 79.8 % (42.0-75.0); Hemoglobin 9.8 g/dL (14.0-18.0); Mean Corpuscular HGB CONC 31.2 g/dL (32.0-36.0); Mean Corpuscular Hemoglobin 30.4 pg (27.0-31.0); Mean Corpuscular Volume 97.6 fL (78.0-98.0); Mean Platelet Volume 9.7 fL (7.4-10.4); Platelet Count 130 thou/uL (130-400); RBC Distribution Width 16.6 % (11.5-14.5); Red Blood Cell (RBC) Count 3.23 mill/uL (4.70-6.10)
[2018-10-20 05:22] LABS: Anion Gap 9 mmol/L (10-20); BUN (Urea Nitrogen) 31 mg/dL (8.4-25.7); Calc. Creatinine Clearance 48 mL/min (70-130); Calcium 7.1 mg/dL (7.8-10.44); Carbon Dioxide 22 mmol/L (23-31); Chloride 110 mmol/L (98-107); Estimated GFR-MDRD 56; Glucose 132 mg/dL (83-110); Sodium 138 mmol/L (136-145)
[2018-10-20] MEDS: Metoclopramide HCl 10 MG/2 ML VIAL IVP SCH ×3 (06:34→21:21)
[2018-10-20] MEDS ORDERED: Furosemide 40 MG/4 ML VIAL SLOW IVP SCH (07:15)
[2018-10-20] MEDS: Metoprolol Tartrate 25 MG TAB PO SCH ×2 (08:54→21:21)
[2018-10-20] MEDS: Famotidine/PF 20 mg/2ml Vial SLOW IVP SCH (08:54)
[2018-10-20] MEDS: Dextrose 5% in Water 1,000 ML IV SCH (12:58)
--- NOTE | 2018-10-20 15:44 | PRG ---
DATE OF SERVICE: 10/20/2018 SUBJECTIVE: Mr. Schuster clinically is unchanged. OBJECTIVE: VITAL SIGNS: He is on 4 L cannula, oximetry is 93%; heart rate is variable; blood pressure 134/94. Intake and output were reported as positive 1794. There is no other new significant change. LABORATORY DATA: White count 7, hemoglobin 9.8, platelets 130. Sodium 138, potassium 3, chloride 110, bicarb 22, BUN 31, creatinine 1.22. His bilirubin got up to 5.1, is down to 4.4. I suspect this is a late effect of blood loss with his aneurysm. Liver enzymes are normal. IMPRESSION: 1. Status post ruptured abdominal aortic aneurysm. 2. Extreme deconditioning and advanced age. Apparently, sons have been located. Apparently, they had falling out with him, and he had no contact with them. He is not competent to make his own healthcare decisions, so the son has decided to make him a do not resuscitate patient today after a long discussion with Palliative Care. I do believe this is one of those scenarios where the operation , but the patient will still pass away. I suspect he will go to a swing bed for physical therapy and never progress to a point where he can live independently again. He is stable to be discharged in my opinion. IV antimicrobial therapy will be stopped. Job ID: [id number]
[2018-10-20] MEDS: Acetaminophen 650 MG/20.3 ML UDCUP PO PRN (16:00)
[2018-10-20] MEDS: Cefdinir 300 MG CAP PO SCH (21:20)
[2018-10-20] MEDS: Melatonin 3 MG TAB PO SCH (21:20)
[2018-10-21] MEDS: Dextrose 5% in Water 1,000 ML IV SCH (02:07)
[2018-10-21 03:56] LABS: #Eosinphils 0.3 thou/uL (0.0-0.7); #Monocytes 0.4 thou/uL (0.11-0.59); #Neutrophils 7.4 thou/uL (1.40-6.50); %Basophils 0.2 % (0.0-1.0); %Eosinophils 2.9 % (0.0-10.0); %Lymphocytes 10.6 % (21.0-51.0); %Neutrophils 82.3 % (42.0-75.0); Hemoglobin 11.4 g/dL (14.0-18.0); Mean Corpuscular Volume 97.1 fL (78.0-98.0); Mean Platelet Volume 9.6 fL (7.4-10.4); Platelet Count 149 thou/uL (130-400); RBC Distribution Width 16.8 % (11.5-14.5); Red Blood Cell (RBC) Count 3.68 mill/uL (4.70-6.10)
[2018-10-21 04:15] LABS: Anion Gap 13 mmol/L (10-20); BUN (Urea Nitrogen) 27 mg/dL (8.4-25.7); Calc. Creatinine Clearance 49 mL/min (70-130); Calcium 7.2 mg/dL (7.8-10.44); Carbon Dioxide 21 mmol/L (23-31); Chloride 107 mmol/L (98-107); Estimated GFR-MDRD 57; Glucose 149 mg/dL (83-110); Potassium 3.7 mmol/L (3.5-5.1); Sodium 137 mmol/L (136-145)
[2018-10-21] MEDS: Metoclopramide HCl 10 MG/2 ML VIAL IVP SCH ×2 (05:21→13:02)
[2018-10-21] MEDS: Haloperidol Lactate 5 MG/ML VIAL IM PRN (05:21)
[2018-10-21 05:47] VITALS: BMI 28.0
[2018-10-21] MEDS: Famotidine/PF 20 mg/2ml Vial SLOW IVP SCH (08:34)
[2018-10-21] MEDS: Cefdinir 300 MG CAP PO SCH (08:35)
[2018-10-21] MEDS: Metoprolol Tartrate 25 MG TAB PO SCH (08:35)
--- NOTE | 2018-10-21 08:56 | CT ---
CT ABDOMEN NONCONTRAST: Date: 10/21/18 Time: 0732 hours HISTORY: 87-year-old male with PEG tube pulled out, recently replaced. TECHNIQUE: No IV contrast. Oral contrast: 20 mL reportedly given through PEG tube. Dr. Gallo discussed the findings by telephone with nurse, Yandel Enriquez, at 0759 hours on 10/21/18. FINDINGS: There is a new percutaneous catheter, with a balloon, in the anterior aspect of the upper peritoneal cavity to the left of midline, which is reportedly a Lr catheter. It is extraluminal, many centime ters distant from the stomach, and abutting and displacing the left transverse colon. There is a mode rate amount of pneumoperitoneum in this area and away from it. There is another new finding of a moderate amount of free fluid around the liver. No small bowel dilation. The previously demonstrated very large abdominal aortic aneurysm has significantly decreased in size, upon placement of a nonmetallic stent within the aneurysm. The aneurysm diameter is now approximatel y 6.6 x 4.8 cm. The fluid in the retroperitoneum representing hematoma from ruptured aneurysm has sig nificantly decreased in volume. There are new findings of small bilateral pleural effusions and consolidations in the bilateral lower lobes. IMPRESSION: 1. There is no percutaneous gastrostomy tube currently in the stomach. 2. Instead, there is catheter, reportedly a Lr catheter with balloon inflated, in the far anterio r aspect of the left upper quadrant peritoneal cavity, displacing a loop of transverse colon. 3. Pneumoperitoneum, which could be due to the gastrostomy tube removal and/or placement of the Fole y catheter in the peritoneal cavity. The possibility of bowel, colonic perforation is not excluded. 4. Interval decrease in size of the abdominal aortic aneurysm upon placement of nonmetallic aortic s tent. 5. New bibasilar pulmonary consolidations with adjacent pleural effusions, which could represent asp iration and/or pneumonia. CODE CR. POS: CELESTINA
[2018-10-21] MEDS ORDERED: Iopamidol 370 76% 50 ML VIAL FS ONE (10:18)
[2018-10-21] MEDS ORDERED: KETAMINE 100 MG/ML (5ML VIAL) ONE (11:23)
[2018-10-21] MEDS ORDERED: Midazolam HCl 2 mg/2 ml Vial ONE (11:23)
[2018-10-21] MEDS ORDERED: Fentanyl 100 MCG/2 ML VIAL ONE (11:23)
[2018-10-21] MEDS ORDERED: Norepinephrine 8 MG/0.9% NS 0 ML ONE (11:24)
[2018-10-21] MEDS ORDERED: Piperacillin/Tazobactam 3.375 GM in Sodium Chloride 0.9% 100 ML IVPB SCH (11:30)
[2018-10-21] MEDS ORDERED: Morphine 2 MG/ML SYRINGE SLOW IVP PRN (11:38)
[2018-10-21] MEDS ORDERED: Morphine 10 MG/ML VIAL SLOW IVP PRN (11:39)
[2018-10-21] MEDS ORDERED: Lorazepam 2 MG/ML VIAL SLOW IVP PRN ×2 (11:39)
[2018-10-21 12:07] VITALS: BP 75/54
--- NOTE | 2018-10-21 14:46 | PRG ---
DATE OF SERVICE: 10/21/2018 SUBJECTIVE: Mr. Schuster is not responsive. OBJECTIVE: He is not tachypneic and does not appear to be ventilating well. He has diffuse wheezes and his blood pressure is dropping down. IMPRESSION: 1. Aspiration pneumonia, now with respiratory failure. He is not expected to survive long now. 2. Status post gastrostomy tube placement last week. He pulled this out this morning. Abdomen is currently soft, but he is not a surgical candidate. PLAN: Hospice is evaluating him, however, I doubt he will be able to last long. The family is at the bedside. Job ID: [id number]
[2018-10-21 15:25] VITALS: TEMP 102.1
--- NOTE | 2018-10-21 16:21 | PRG ---
DATE OF SERVICE: 10/21/2018 SUBJECTIVE: Jersey Schuster today pulled out his feeding tube. The surgeon was unable to get a feeding tube back in him and it was anticipated he would need an operative procedure for this. Somehow the mental health case manager was able [facility], which included his living will and preexisting wishes. He had put in his preexisting wishes that he did not even want minor surgery. I had a long discussion with his sonJose by phone and I reviewed these with him. He informed me that his dad would not want to go on unless he could become as functional as he was before. I think there is absolutely zero chance that he can become the same man he was prior to his ruptured abdominal aortic aneurysm. I think the best we can hope for would be that he would be lying in a usp bedridden and chairbound, and he said he would never want that, so we have opted not to proceed with surgery. This was witnessed by the mental health case manager. We are now proceeding with inpatient hospice arrangements hopefully and comfort care only. Job ID: [id number]
--- NOTE | 2018-10-22 00:24 | DIS ---
DATE OF ADMISSION: 10/03/2018 DATE OF DISCHARGE: 10/21/2018 DIAGNOSES: 1. Ruptured abdominal aortic aneurysm. 2. Failure to thrive postoperatively. 3. Ventilator dependence postoperatively. 4. Aspiration pneumonia. PROCEDURES: 1. Open repair of ruptured abdominal aortic aneurysm. 2. Percutaneous PEG placement. DESCRIPTION OF HOSPITAL STAY: Mr. Schuster was transferred from the [facility] via helicopter with a ruptured abdominal aortic aneurysm. He was emergently taken to the operating room and underwent open repair. Postoperatively, he remained on the ventilator due to his age and deconditioned state. Eventually, we were able to wean him off the ventilator, although he remained difficult to keep his oxygen saturations in the normal range. Eventually, he required PEG placement for feeding access. On the morning of 10/21, he pulled his PEG tube. We were planning to take him back to the operating room for replacement when he began to have episodes of hypotension. He was bolused with fluid, which helped with his hypotension. While we were resuscitating him, his son who had not been in the picture until now, came in and had papers from the [employer] showing the patient did not wish to be artificially kept alive with nutrition or the ventilator. He also had checked multiple other medical therapies that he was not in favor of on his advance directive. Due to this and after discussion with the patient's son, we elected to not pursue any further treatment and the patient from septic shock soon thereafter. Job ID: [id number]
== END 2018-10-21 15:16 | disposition expired | DRG 270 ==
LOC: ERS 11:30 → SDC 11:37 → CCU 14:54 → IMCU/EMU 10-11 21:30
PROVIDERS: ADMIT Thoracic Surgery (Cardiothoracic Vascular Surgery); ATTEND Thoracic Surgery (Cardiothoracic Vascular Surgery)
PROC: 04V00DZ Restriction of Abdominal Aorta with Intraluminal Device, Open Approach (ICD-10-PCS; principal; 2018-10-03)
PROC: 30243L1 Transfusion of Nonautologous Fresh Plasma into Central Vein, Percutaneous Approach (ICD-10-PCS; 2018-10-03)
PROC: 30243N1 Transfusion of Nonautologous Red Blood Cells into Central Vein, Percutaneous Approach (ICD-10-PCS; 2018-10-03)
PROC: 30243R1 Transfusion of Nonautologous Platelets into Central Vein, Percutaneous Approach (ICD-10-PCS; 2018-10-03)
PROC: 30243M1 Transfusion of Nonautologous Plasma Cryoprecipitate into Central Vein, Percutaneous Approach (ICD-10-PCS; 2018-10-03)
PROC: 02HV33Z Insertion of Infusion Device into Superior Vena Cava, Percutaneous Approach (ICD-10-PCS; 2018-10-03)
PROC: 5A1955Z Respiratory Ventilation, Greater than 96 Consecutive Hours (ICD-10-PCS; 2018-10-03)
PROC: 0DH63UZ Insertion of Feeding Device into Stomach, Percutaneous Approach (ICD-10-PCS; 2018-10-13)
DX: I71.3 Abdominal aortic aneurysm, ruptured (principal); J69.0 Pneumonitis due to inhalation of food and vomit; J96.01 Acute respiratory failure with hypoxia; A41.9 Sepsis, unspecified organism; G93.41 Metabolic encephalopathy; R65.21 Severe sepsis with septic shock; D62 Acute posthemorrhagic anemia; K56.7 Ileus, unspecified; K22.10 Ulcer of esophagus without bleeding; E87.0 Hyperosmolality and hypernatremia; Z99.11 Dependence on respirator [ventilator] status; Z51.5 Encounter for palliative care; Z66 Do not resuscitate; I10 Essential (primary) hypertension; N28.9 Disorder of kidney and ureter, unspecified; E87.79 Other fluid overload; E87.8 Other disorders of electrolyte and fluid balance, not elsewhere classified; E80.6 Other disorders of bilirubin metabolism; E87.6 Hypokalemia; R62.7 Adult failure to thrive; R13.12 Dysphagia, oropharyngeal phase; K44.9 Diaphragmatic hernia without obstruction or gangrene; Z68.28 Body mass index [BMI] 28.0-28.9, adult; Z87.891 Personal history of nicotine dependence; I95.9 Hypotension, unspecified
CPT/HCPCS: 36415; 36416; 36430; 71045; 74150; 80048; 80076; 81001; 82805; 83735; 84100; 85025; 85610; 85730; 86850; 86900; 86901; 87040; 87086; 93005; 93010; 93306; 94002; 94003; 94640; 99285; J0131; J1630; J1644; J1940; J2060; J2250; J2270; J2370; J2405; J2543; J2704; J2720; J2765; J3010; J3480; J3486; J7050; J7620; P9012; P9016; P9035; P9045; P9048; P9059; Q9967; S0028